=== PATIENT | female | born 1950 | race Caucasian/White ===

== ENCOUNTER 2016-10-30 05:39 | Outpatient (CLI) | payer MEDICARE, MEDICAID ==
[~2016-10-30] VITALS: Ht 160 cm; Wt 66.2 kg
[~2016-10-30 05:39] MED LIST: ARPZ20T PO; HCTZ12.5T PO; LVT.05T PO; METH10TA3; PANT20TA2 PO; SCR1T1 PO; SIMV10TA3; TRM50T PO; VENL100T PO; ZLP10T
[2016-10-30] MEDS ORDERED: MAGN250T PO (12:58)
[2016-10-30] MEDS ORDERED: CHOL10003 PO (12:58)
[2016-10-30] MEDS ORDERED: DESV50TA PO (12:58)
== END 2016-10-30 12:59 ==
LOC: PREOP 05:39
PROVIDERS: ATTEND Surgery Pediatric Surgery
DX: Z01.818 Encounter for other preprocedural examination (principal); Z12.11 Encounter for screening for malignant neoplasm of colon

== ENCOUNTER 2017-04-11 05:39 | Outpatient (CLI) | payer MEDICARE, MEDICAID ==
[~2017-04-11] VITALS: Ht 160 cm; Wt 75.3 kg
[~2017-04-11 05:39] MED LIST changes: +CHOL10003 PO; +DESV50TA PO; +MAGN250T2 PO
[2017-04-11] MEDS ORDERED: LEVO50TA6 PO (09:36)
[2017-04-11] MEDS ORDERED: CEFD300C3 PO (09:36)
[2017-04-11] MEDS ORDERED: ARIP20TA9 PO (09:36)
[2017-04-11] MEDS ORDERED: CHOL20002 PO (09:36)
[2017-04-11] MEDS ORDERED: POTA20TA15 PO (09:36)
[2017-04-11] MEDS ORDERED: HYDR12.5 PO (09:36)
[2017-04-11] MEDS ORDERED: METO-370 PO (09:36)
== END 2017-04-11 09:43 ==
LOC: PREOP 05:39
PROVIDERS: ATTEND Surgery
DX: Z01.818 Encounter for other preprocedural examination (principal); Z12.11 Encounter for screening for malignant neoplasm of colon

== ENCOUNTER 2017-04-18 10:17 | Day surgery (SDC) | payer MEDICARE, MEDICAID ==
[~2017-04-18] VITALS: Ht 160 cm; Wt 75.3 kg
[~2017-04-18 10:17] MED LIST changes: +ARIP20TA9 PO; +CEFD300C3 PO; +CHOL20002 PO; +HYDR12.5 PO; +LEVO50TA6 PO; +METO-370 PO; +POTA20TA15 PO
--- OUTSIDE RECORDS SUMMARY | 2017-04-18 10:22 | XMS REPORT | Continuity of Care Document ---
Author Author [facility] Address Unknown Phone Unavailable Allergies Active Description Code Type Severity Reaction Onset Reported/Identified Relationship to Patient Clinical Status Yes ENVIROMENTAL ENVIROMENTAL Mild N/A 09/30/2008 Yes Neosporin AF Drug Allergy N/A N/A 09/29/2013 Yes Neosporin ([id number]) Drug Allergy N/A N/A 10/16/2013 Yes Carafate Drug Allergy N/A N/A 02/07/2014 Yes bacitracin [id number] Drug Allergy Unknown N/A 04/11/2017 Yes neomycin [id number] Drug Allergy Unknown N/A 04/11/2017 Yes polymyxin B [id number] Drug Allergy Unknown N/A 04/11/2017 Medications Problems Date Dx Coded Attending Type Code Diagnosis Diagnosed By 09/29/2013 ILIANA EMERSON APRN S 496 COPD 10/16/2013 ILIANA EMERSON APRN S 244.9 HYPOTHYROIDISM 10/16/2013 JORDAN EMERSON APRNA S 296.80 BIPOLAR DISORDER UNSPECIFIED 10/16/2013 ILIANA EMRESON APRN S 496 COPD 10/16/2013 ILIANA EMERSON APRN S 530.81 GERD 10/16/2013 ILIANA EMERSON APRN S 691.8 ECZEMA 10/16/2013 ILIANA EMERSON APRN S 796.2 ELEVATED BLOOD PRESSURE READING WITHOUT DIAGNOSIS OF HYPERTENSION 10/16/2013 ILIANA EMERSON APRN S V70.0 EXAM - ROUTINE H&P 10/16/2013 JORDAN EMERSON APRNA S 244.9 HYPOTHYROIDISM 10/16/2013 JORDAN EMERSON APRNA S 296.80 BIPOLAR DISORDER UNSPECIFIED 10/16/2013 JORDAN EMERSON APRNA S 496 COPD 10/16/2013 SARABJIT EMERSON APRNNDA S 530.81 GERD 10/16/2013 IDANIA SOCCER COMMENTATOR, ILIANA S 691.8 ECZEMA 10/16/2013 IDANIA SOCCER COMMENTATOR, ILIANA S 796.2 ELEVATED BLOOD PRESSURE READING WITHOUT DIAGNOSIS OF HYPERTENSION 10/16/2013 IDANIA SOCCER COMMENTATOR, ILIANA S V70.0 EXAM - ROUTINE H&P 10/16/2013 LOTUS SOCCER COMMENTATOR, FABBY A 244.9 HYPOTHYROIDISM 10/16/2013 LOTUS SOCCER COMMENTATOR, FABBY A 296.80 BIPOLAR DISORDER UNSPECIFIED 10/16/2013 LOTUS SOCCER COMMENTATOR, FABBY A 496 COPD 10/16/2013 LOTUS SOCCER COMMENTATOR, FABBY A 530.81 GERD 10/16/2013 LOTUS SOCCER COMMENTATOR, FABBY A 691.8 ECZEMA 10/16/2013 LOTUS SOCCER COMMENTATOR, FABBY A 796.2 ELEVATED BLOOD PRESSURE READING WITHOUT DIAGNOSIS OF HYPERTENSION 10/16/2013 LOTUS SOCCER COMMENTATOR, FABBY A V70.0 EXAM - ROUTINE H&P 10/16/2013 LOTUS SOCCER COMMENTATOR, FABBY A 244.9 HYPOTHYROIDISM 10/16/2013 LOTUS SOCCER COMMENTATOR, FABBY A 296.80 BIPOLAR DISORDER UNSPECIFIED 10/16/2013 LOTUS SOCCER COMMENTATOR, FABBY A 496 COPD 10/16/2013 LOTUS SOCCER COMMENTATOR, FABBY A 530.81 GERD 10/16/2013 LOTUS SOCCER COMMENTATOR, FABBY A 691.8 ECZEMA 10/16/2013 LOTUS SOCCER COMMENTATOR, FABBY A 796.2 ELEVATED BLOOD PRESSURE READING WITHOUT DIAGNOSIS OF HYPERTENSION 10/16/2013 LOTUS RIBEIRO, FABBY A V70.0 EXAM - ROUTINE H&P 10/16/2013 IDANIA DONGN, ILIANA S 244.9 HYPOTHYROIDISM 10/16/2013 IDANIA SOCCER COMMENTATOR, ILIANA S 296.80 BIPOLAR DISORDER UNSPECIFIED 10/16/2013 IDANIA RIBEIRO, ILIANA S 496 COPD 10/16/2013 IDANIA DONGN, ILIANA S 530.81 GERD 10/16/2013 IDANIA SOCCER COMMENTATOR, ILIANA S 691.8 ECZEMA 10/16/2013 IDANIA SOCCER COMMENTATOR, ILIANA S 796.2 ELEVATED BLOOD PRESSURE READING WITHOUT DIAGNOSIS OF HYPERTENSION 10/16/2013 SARABJIT EMERSON APRNNDA S V70.0 EXAM - ROUTINE H&P 10/16/2013 IDANIA SOCCER COMMENTATOR, ILIANA S 244.9 HYPOTHYROIDISM 10/16/2013 IDANIA SOCCER COMMENTATOR, ILIANA S 296.80 BIPOLAR DISORDER UNSPECIFIED 10/16/2013 IDANIA SOCCER COMMENTATOR, ILIANA S 496 COPD 10/16/2013 IDANIA SOCCER COMMENTATOR, ILIANA S 530.81 GERD 10/16/2013 IDANIA SOCCER COMMENTATOR, ILIANA S 691.8 ECZEMA 10/16/2013 IDANIA SOCCER COMMENTATOR, ILIANA S 796.2 ELEVATED BLOOD PRESSURE READING WITHOUT DIAGNOSIS OF HYPERTENSION 10/16/2013 IDANIA SOCCER COMMENTATOR, ILIANA S V70.0 EXAM - ROUTINE H&P 10/16/2013 IDANIA SOCCER COMMENTATOR, ILIANA S 244.9 HYPOTHYROIDISM 10/16/2013 IDANIA SOCCER COMMENTATOR, ILIANA S 296.80 BIPOLAR DISORDER UNSPECIFIED 10/16/2013 IDANIA SOCCER COMMENTATOR, ILIANA S 496 COPD 10/16/2013 IDANIA SOCCER COMMENTATOR, ILIANA S 530.81 GERD 10/16/2013 IDANIA SOCCER COMMENTATOR, ILIANA S 691.8 ECZEMA 10/16/2013 IDANIA SOCCER COMMENTATOR, ILIANA S 796.2 ELEVATED BLOOD PRESSURE READING WITHOUT DIAGNOSIS OF HYPERTENSION 10/16/2013 IDANIA SOCCER COMMENTATOR, ILIANA S V70.0 EXAM - ROUTINE H&P 10/16/2013 IDANIA SOCCER COMMENTATOR, ILIANA S 244.9 HYPOTHYROIDISM 10/16/2013 IDANIA SOCCER COMMENTATOR, ILIANA S 296.80 BIPOLAR DISORDER UNSPECIFIED 10/16/2013 IDANIA SOCCER COMMENTATOR, ILIANA S 496 COPD 10/16/2013 IDANIA SOCCER COMMENTATOR, ILIANA S 530.81 GERD 10/16/2013 IDANIA SOCCER COMMENTATOR, ILIANA S 691.8 ECZEMA 10/16/2013 IDANIA SOCCER COMMENTATOR, ILIANA S 796.2 ELEVATED BLOOD PRESSURE READING WITHOUT DIAGNOSIS OF HYPERTENSION 10/16/2013 IDANIA SOCCER COMMENTATOR, ILIANA S V70.0 EXAM - ROUTINE H&P 10/16/2013 IDANIA SOCCER COMMENTATOR, ILIANA S 244.9 HYPOTHYROIDISM 10/16/2013 IDANIA SOCCER COMMENTATOR, ILIANA S 296.80 BIPOLAR DISORDER UNSPECIFIED 10/16/2013 IDANIA SOCCER COMMENTATOR, ILIANA S 496 COPD 10/16/2013 IDANIA SOCCER COMMENTATOR, ILIANA S 530.81 GERD 10/16/2013 IDANIA SOCCER COMMENTATOR, ILIANA S 691.8 ECZEMA 10/16/2013 IDANIA SOCCER COMMENTATOR, ILIANA S 796.2 ELEVATED BLOOD PRESSURE READING WITHOUT DIAGNOSIS OF HYPERTENSION 10/16/2013 IDANIA RIBEIRO, ILIANA S V70.0 EXAM - ROUTINE H&P 10/27/2013 IDANIA SOCCER COMMENTATOR, ILIANA S 466.0 ACUTE BRONCHITIS 10/27/2013 LOTUS SOCCER COMMENTATOR, FABBY A 466.0 ACUTE BRONCHITIS 10/27/2013 LOTUS SOCCER COMMENTATOR, FABBY A 466.0 ACUTE BRONCHITIS 10/27/2013 IDANIA SOCCER COMMENTATOR, ILIANA S 466.0 ACUTE BRONCHITIS 10/27/2013 IDANIA SOCCER COMMENTATOR, ILIANA S 466.0 ACUTE BRONCHITIS 10/27/2013 IDANIA SOCCER COMMENTATOR, ILIANA S 466.0 ACUTE BRONCHITIS 10/27/2013 IDANIA SOCCER COMMENTATOR, ILIANA S 466.0 ACUTE BRONCHITIS 10/27/2013 IDANIA SOCCER COMMENTATOR, ILIANA S 466.0 ACUTE BRONCHITIS 12/16/2013 LOTUS SOCCER COMMENTATOR, FABBY A 401.1 HYPERTENSION, BENIGN ESSENTIAL 12/16/2013 LOTUS SOCCER COMMENTATOR, FABBY A 787.20 DYSPHAGIA UNSPECIFIED 12/16/2013 LOTUS SOCCER COMMENTATOR, FABBY A 401.1 HYPERTENSION, BENIGN ESSENTIAL 12/16/2013 LOTUS SOCCER COMMENTATOR, FABBY A 787.20 DYSPHAGIA UNSPECIFIED 12/16/2013 IDANIA SOCCER COMMENTATOR, ILIANA S 401.1 HYPERTENSION, BENIGN ESSENTIAL 12/16/2013 IDANIA SOCCER COMMENTATOR, ILIANA S 787.20 DYSPHAGIA UNSPECIFIED 12/16/2013 IDANIA SOCCER COMMENTATOR, ILIANA S 401.1 HYPERTENSION, BENIGN ESSENTIAL 12/16/2013 IDANIA SOCCER COMMENTATOR, ILIANA S 787.20 DYSPHAGIA UNSPECIFIED 12/16/2013 IDANIA SOCCER COMMENTATOR, ILIANA S 401.1 HYPERTENSION, BENIGN ESSENTIAL 12/16/2013 IDANIA SOCCER COMMENTATOR, ILIANA S 787.20 DYSPHAGIA UNSPECIFIED 12/16/2013 IDANIA SOCCER COMMENTATOR, ILIANA S 401.1 HYPERTENSION, BENIGN ESSENTIAL 12/16/2013 IDANIA RIBEIRO ILIANA S 787.20 DYSPHAGIA UNSPECIFIED 12/16/2013 IDANIA RIBEIRO ILIANA S 401.1 HYPERTENSION, BENIGN ESSENTIAL 12/16/2013 IDANIA RIBEIRO ILIANA S 787.20 DYSPHAGIA UNSPECIFIED 12/24/2013 LOTUS RIBEIRO FABBY A V65.3 COUNSELING - DIETARY 12/24/2013 LOTUS RIBEIRO FABBY A V65.42 COUNSELING - SMOKING CESSATION 12/24/2013 LOTUS RIBEIRO FABBY A V72.31 CONTINUOUS IMPROVEMENT ANALYST EXAM, ROUTINE 12/24/2013 LOTUS RIBEIRO FABBY A V76.10 BREAST CANCER SCREENING 12/24/2013 LOTUS RIBEIRO FABBY A V82.81 SPECIAL SCREENING FOR OSTEOPOROSIS 12/24/2013 LOTUS RIBEIRO FABBY A V65.3 COUNSELING - DIETARY 12/24/2013 LOTUS DONGFelix FABBY A V65.42 COUNSELING - SMOKING CESSATION 12/24/2013 LOTUS RIBEIRO FABBY A V72.31 CONTINUOUS IMPROVEMENT ANALYST EXAM, ROUTINE 12/24/2013 LOTUS RIBEIRO FABBY A V76.10 BREAST CANCER SCREENING 12/24/2013 LOTUS RIBEIRO FABBY A V82.81 SPECIAL SCREENING FOR OSTEOPOROSIS 12/24/2013 IDANIA SOCCER COMMENTATORSARABJIT [place] S V65.3 COUNSELING - DIETARY 12/24/2013 IDANIAMARIA GUADALUPE DONGSARABJIT [place] S V65.42 COUNSELING - SMOKING CESSATION 12/24/2013 SARABJIT EMERSON APRNNDA S V72.31 CONTINUOUS IMPROVEMENT ANALYST EXAM, ROUTINE 12/24/2013 IDANIA RIBEIRO ILIANA S V76.10 BREAST CANCER SCREENING 12/24/2013 IDANIA SOCCER COMMENTATOR, ILIANA S V82.81 SPECIAL SCREENING FOR OSTEOPOROSIS 12/24/2013 IDANIA RIBEIRO ILIANA S V65.3 COUNSELING - DIETARY 12/24/2013 IDANIA SOCCER COMMENTATOR, ILIANA S V65.42 COUNSELING - SMOKING CESSATION 12/24/2013 IDANIA RIBEIRO ILIANA S V72.31 CONTINUOUS IMPROVEMENT ANALYST EXAM, ROUTINE 12/24/2013 IDANIA RIBEIRO ILIANA S V76.10 BREAST CANCER SCREENING 12/24/2013 IDANIA SOCCER COMMENTATOR, ILIANA S V82.81 SPECIAL SCREENING FOR OSTEOPOROSIS 12/24/2013 IDANIA SOCCER COMMENTATOR, ILIANA S V65.3 COUNSELING - DIETARY 12/24/2013 IDANIA SOCCER COMMENTATOR, ILIANA S V65.42 COUNSELING - SMOKING CESSATION 12/24/2013 IDANIA SOCCER COMMENTATOR, ILIANA S V72.31 CONTINUOUS IMPROVEMENT ANALYST EXAM, ROUTINE 12/24/2013 IDANIA SOCCER COMMENTATOR, ILIANA S V76.10 BREAST CANCER SCREENING 12/24/2013 IDANIA SOCCER COMMENTATOR, ILIANA S V82.81 SPECIAL SCREENING FOR OSTEOPOROSIS 12/24/2013 IDANIA SOCCER COMMENTATOR, ILIANA S V65.3 COUNSELING - DIETARY 12/24/2013 IDANIA SOCCER COMMENTATOR, ILIANA S V65.42 COUNSELING - SMOKING CESSATION 12/24/2013 IDANIA SOCCER COMMENTATOR, ILIANA S V72.31 CONTINUOUS IMPROVEMENT ANALYST EXAM, ROUTINE 12/24/2013 IDANIA SOCCER COMMENTATOR, ILIANA S V76.10 BREAST CANCER SCREENING 12/24/2013 IDANIA SOCCER COMMENTATOR, ILIANA S V82.81 SPECIAL SCREENING FOR OSTEOPOROSIS 12/24/2013 IDANIA SOCCER COMMENTATOR, ILIANA S V65.3 COUNSELING - DIETARY 12/24/2013 IDANIA SOCCER COMMENTATOR, ILIANA S V65.42 COUNSELING - SMOKING CESSATION 12/24/2013 IDANIA SOCCER COMMENTATOR, ILIANA S V72.31 CONTINUOUS IMPROVEMENT ANALYST EXAM, ROUTINE 12/24/2013 IDANIA SOCCER COMMENTATOR, ILIANA S V76.10 BREAST CANCER SCREENING 12/24/2013 IDANIA SOCCER COMMENTATOR, ILIANA S V82.81 SPECIAL SCREENING FOR OSTEOPOROSIS 01/30/2014 FAINA BRITTON MD Ot 530.11 REFLUX ESOPHAGITIS 01/30/2014 FAINA BRITTON MD Ot 535.50 UNSP GASTRITIS GASTRODUODENITIS W/O ME 01/30/2014 FAINA BRITTON MD Ot 553.3 DIAPHRAGMATIC HERNIA 02/07/2014 IDANIA RIBEIRO, ILIANA S 535.40 OTHER SPECIFIED GASTRITIS (WITHOUT HEMORRHAGE) 02/07/2014 IDANIA RIBEIRO ILIANA S V15.82 NICOTINE ABUSE 02/07/2014 IDANIA SOCCER COMMENTATOR, ILIANA S 535.40 OTHER SPECIFIED GASTRITIS (WITHOUT HEMORRHAGE) 02/07/2014 IDANIA SOCCER COMMENTATOR, ILIANA S V15.82 NICOTINE ABUSE 02/07/2014 IDANIA SOCCER COMMENTATOR, ILIANA S 535.40 OTHER SPECIFIED GASTRITIS (WITHOUT HEMORRHAGE) 02/07/2014 IDANIA SOCCER COMMENTATOR, ILIANA S V15.82 NICOTINE ABUSE 02/07/2014 IDANIA SOCCER COMMENTATOR, ILIANA S 535.40 OTHER SPECIFIED GASTRITIS (WITHOUT HEMORRHAGE) 02/07/2014 IDANIA SOCCER COMMENTATOR, ILIANA S V15.82 NICOTINE ABUSE 02/07/2014 IDANIA SOCCER COMMENTATOR, ILIANA S 535.40 OTHER SPECIFIED GASTRITIS (WITHOUT HEMORRHAGE) 02/07/2014 IDANIA SOCCER COMMENTATOR, ILIANA S V15.82 NICOTINE ABUSE 05/27/2014 IDANIA SOCCER COMMENTATOR, ILIANA S 704.8 OTHER SPECIFIED DISEASES OF HAIR AND HAIR FOLLICLES 05/27/2014 IDANIA SOCCER COMMENTATOR, ILIANA S 704.8 OTHER SPECIFIED DISEASES OF HAIR AND HAIR FOLLICLES 05/27/2014 IDANIA SOCCER COMMENTATOR, ILIANA S 704.8 OTHER SPECIFIED DISEASES OF HAIR AND HAIR FOLLICLES 06/18/2014 IDANIA RIBEIRO, ILIANA S 780.57 SLEEP APNEA 06/18/2014 IDANIA SOCCER COMMENTATOR, ILIANA S 780.57 SLEEP APNEA 07/07/2014 IDANIA RIBEIRO, ILIANA S 788.1 DYSURIA 07/07/2014 IDANIA SOCCER COMMENTATOR, ILIANA S 788.1 DYSURIA 07/27/2014 IDANIA SOCCER COMMENTATOR, ILIANA S 616.10 VAGINITIS AND VULVOVAGINITIS UNSPECIFIED 07/27/2014 IDANIA RIBEIRO, ILIANA S 616.10 VAGINITIS AND VULVOVAGINITIS UNSPECIFIED 08/13/2014 IDANIA RIBEIRO, ILIANA S 327.23 SLEEP APNEA 08/13/2014 IDANIA SOCCER COMMENTATOR, ILIANA S 724.5 BACK PAIN, GENERAL 08/13/2014 IDANIA RIBEIRO ILIANA S 780.4 DIZZINESS AND VERTIGO 08/13/2014 IDANIA RIBEIRO, ILIANA S 786.05 SHORTNESS OF BREATH 03/02/2015 ILIANA EMERSON CONTRACT LAW SPECIALIST Ot V76.12 03/02/2015 FAINA BRITTON MD Ot V72.84 03/02/2015 FAINA BRITTON MD Ot V72.84 03/23/2015 TRACY ERICKSON, ISAIAH L Ot Z12.31 03/26/2015 TRACY ERICKSON, ISAIAH L Ot Z12.31 03/30/2015 ILIANA EMERSON CONTRACT LAW SPECIALIST Ot V76.12 03/30/2015 TOBI ERICKSON, HAMKI Ot V72.84 03/30/2015 TOBI ERICKSON, SYLVESTERAAKI Ot V72.84 03/30/2015 TRACY ERICKSON, ISAIAH L Ot Z12.31 04/01/2015 ILIANA EMERSON CONTRACT LAW SPECIALIST Ot V76.12 04/01/2015 TOBI ERICKSON, TAKAAKI Ot V72.84 04/01/2015 TOBI ERICKSON, SYLVESTERAAKI Ot V72.84 04/01/2015 TRACY ERICKSON, ISAIAH L Ot Z12.31 04/02/2015 TRACY ERICKSON, ISAIAH L Ot Z12.31 04/02/2015 TRACY ERICKSON, ISAIAH L Ot G47.36 SLEEP RELATED HYPOVENTILATION IN CONDITI 03/08/2016 ILIANA EMERSON CONTRACT LAW SPECIALIST Ot V76.12 OTH SCREEN MAMMO-MALIGN NEOPLASM OF DWIGHT 03/08/2016 TOBI ERICKSON, SYLVESTERAAKI Ot V72.84 EXAM PRE-OPERATIVE NOS 03/08/2016 HAM BRITTON MDKI Ot V72.84 EXAM PRE-OPERATIVE NOS 03/08/2016 TRACY ERICKSON, ISAIAH L Ot Z12.31 ENCNTR SCREEN MAMMOGRAM FOR MALIGNANT NE 03/08/2016 TRACY ERICKSON, ISAIAH L Ot Z12.31 ENCNTR SCREEN MAMMOGRAM FOR MALIGNANT NE 03/08/2016 TRACY ERICKSON, ISAIAH L Ot Z12.31 ENCNTR SCREEN MAMMOGRAM FOR MALIGNANT NE 03/17/2016 TRACY ERICKSON, ISAIAH L Ot Z12.31 ENCNTR SCREEN MAMMOGRAM FOR MALIGNANT NE 05/17/2016 TRACY ERICKSON, ISAIAH L Ot Z12.31 ENCNTR SCREEN MAMMOGRAM FOR MALIGNANT NE 11/01/2016 ILIANA EMERSON CONTRACT LAW SPECIALIST Ot V76.12 OTH SCREEN MAMMO-MALIGN NEOPLASM OF DWIGHT 11/01/2016 FAINA BRITTON MD Ot V72.84 EXAM PRE-OPERATIVE NOS 11/01/2016 FAINA BRITTON MD Ot V72.84 EXAM PRE-OPERATIVE NOS 11/01/2016 TRACY ERICKSON, ISAIAH Wilson Ot Z12.31 ENCNTR SCREEN MAMMOGRAM FOR MALIGNANT NE 11/01/2016 ISAIAH MOLINA MD Ot Z12.31 ENCNTR SCREEN MAMMOGRAM FOR MALIGNANT NE 11/05/2016 FAINA BRITTON MD Ot Z01.818 ENCOUNTER FOR OTHER PREPROCEDURAL EXAMIN 11/05/2016 FAINA BRITTON MD, Ot Z12.11 ENCOUNTER FOR SCREENING FOR MALIGNANT NE 04/13/2017 FAINA BRITTON MD Ot Z01.818 ENCOUNTER FOR OTHER PREPROCEDURAL EXAMIN 04/13/2017 FAINA BRITTON MD, Ot Z12.11 ENCOUNTER FOR SCREENING FOR MALIGNANT NE 04/17/2017 FAINA BRITTON MD, Ot Z01.818 ENCOUNTER FOR OTHER PREPROCEDURAL EXAMIN 04/17/2017 FAINA BRITTON MD, Ot Z12.11 ENCOUNTER FOR SCREENING FOR MALIGNANT NE Procedures Code Description [place] [address] ROUTINE VENIPUNCTURE 10/21/2013 86782 XRAY CHEST 2 VIEW 10/21/2013 43720 CMP 10/21/2013 57695 CBC 10/21/2013 1344846 GFR CALC (RESULT ONLY) 10/21/2013 11554 LIPID PANEL 10/21 43982 TSH 10/21/2013 79858 MAMMOGRAM, SCREENING 12/24/2013 59541 BONE MINERAL DENSITY, HEEL US (IN HOUSE) 12/24/2013 65105 UA W/ CULTURE IF INDICATED 07/27/2014 97876 ROUTINE VENIPUNCTURE 08/13/2014 [id number] GFR CALC (RESULT ONLY) 08/14/2014 98346 CMP 08/14/2014 30161 OXIMETRY 2014 Results Encounters ACCT No. Visit Date/Time Discharge Status Pt. Type Provider Facility Loc./Unit Complaint [id number] 08/13/2014 15:52:00 08/13/2014 23: 59:59 CLS Outpatient ILIANA EMERSON APRN [id number] 07/27/2014 14:22:00 07/27/2014 23: 59:59 CLS Outpatient ILIANA EMERSON APRN [id number] 05/27/2014 13:28:00 05/27/2014 23: 59:59 CLS Outpatient ILIANA EMERSON APRN [id number] 03/09/2014 11:56:00 03/09/2014 23: 59:59 CLS Outpatient ILIANA EMERSON APRN [id number] 02/07/2014 09:25:00 02/07/2014 23: 59:59 CLS Outpatient ILIANA EMERSON APRN [id number] 12/24/2013 13:39:00 12/24/2013 23: 59:59 CLS Outpatient FABBY GAUTAM APRN [id number] 12/24/2013 13:39:00 12/24/2013 23: 59:59 CLS Outpatient FABBY GAUTAM APRN [id number] 10/21/2013 10:00:00 10/21/2013 23: 59:59 CLS Outpatient ILIANA EMERSON APRN [id number] 10/16/2013 16:45:00 10/16/2013 23: 59:59 CLS Outpatient ILIANA EMERSON APRN [id number] 09/29/2013 11:03:00 09/29/2013 23: 59:59 CLS Outpatient ILIANA EMERSON APRN [id number] 04/11/2017 05:39:00 2016 09:43:00 DIS Outpatient FAINA BRITTON MD [facility] PREOP COLONOSCOPY [id number] 11/03/2016 12:30:00 2016 23:59:59 CLS Preadmit FAINA BRITTON MD [facility] ENDO SCREENING [id number] 11/01/2016 09:30:00 2016 09:30:00 CAN Preadmit FAINA BRITTON MD [facility] ENDO SCREENING [id number] 10/30/2016 05:39:00 2016 12:59:00 DIS Outpatient FAINA BRITTON MD [facility] PREOP SCREENING [id number] 03/08/2016 14:17:00 2015 23:59:59 CLS Outpatient ISAIAH MOLINA MD [facility] RAD SCREENING FOR BREAST CANCER [id number] 04/02/2015 14:27:00 2014 14:39:00 DIS Outpatient ISAIAH MOLINA MD [facility] SLEEP MOOD DISORDER [id number] 03/02/2015 12:10:00 2014 23:59:59 CLS Outpatient ISAIAH MOLINA MD [facility] RAD SCREENING [id number] 08/21/2014 21:00:00 2014 23:59:59 CLS Preadmit ILIANA EMERSON [facility] SLEEP MOOD DISORDER [id number] 01/30/2014 09:04:00 2013 13:00:00 DIS Outpatient FAINA BRITTON MD [facility] SDC DYSPHASIA [id number] 01/29/2014 07:32:00 2013 23:59:59 CLS Outpatient FAINA BIRTTON MD [facility] PREOP DYSPHASIA [id number] 01/14/2014 07:14:00 2013 23:59:59 CLS Outpatient FAINA BRITTON MD [facility] PREOP DYSPHAGIA [id number] 01/01/2014 14:00:00 2013 23:59:59 CLS Outpatient ILIANA EMERSON [facility] RAD SCREENING [id number] 03/02/2015 12:08:00 Document Registration
[2017-04-18] MEDS ORDERED: LIDOCAINE JELLY 2% (XYLOCAINE) 5 ML TUBE MM PRN (10:30)
[2017-04-18 10:36] VITALS: BP 104/73
[2017-04-18] MEDS ORDERED: LIDOCAINE JELLY 2% (XYLOCAINE) 5 ML TUBE ONE (10:43)
[2017-04-18] MEDS ORDERED: fentaNYL INJECTION 100 MCG/2 ML AMP ONE (10:44)
[2017-04-18] MEDS ORDERED: MIDAZOLAM 2 MG/2 ML (VERSED) VIAL ONE ×4 (10:44)
[2017-04-18] MEDS ORDERED: NS IV 500 ML 500 ML IV PRN (10:45)
--- NOTE | 2017-04-18 10:51 | Conscious Sedation/ASA ---
Conscious Sedation Pre-Proced Time Reviewed: 10:45 ASA Class: 2 Airway Mallampati Classification: (iliamna appropriate class) I. II. III, IV Lungs Heart ASA score ASA 1: a normal healthy patient ASA 2: a patient with a mild systemic disease (mid diabetes, controlled hypertension, obesity ASA 3: a patient with a severe systemic disease that limits activity (angina , COPD, prior Myocardial infarction) ASA 4: a patient with an incapacitating disease that is a constant threat to life (CHF, renal failure) ASA 5: a moribund patient not expected to survive 24 hrs. (ruptured aneurysm) ASA 6: a declared brain patient whose organs are being harvested. For emergent operations, add the letter E after the classification Grade 2 Sedation Plan: Analgesia, Amnesia, Plan communicated to team members, Discussed options with patient/fam, Discussed risks with patient/fam Note The patient is an appropriate candidate to undergo the planned procedure, sedation, and anesthesia. The patient immediately re-assessed prior to indication. FAINA BRITTON MD Apr 18, 2017 10:51 am
--- NOTE | 2017-04-18 10:53 | Progress Note-Pre Operative ---
Pre-Operative Progress Note H&P Reviewed The H&P was reviewed, patient examined and no changes noted. Date Seen by Provider: Apr 18, 2017 Time Seen by Provider: 10:45 Date H&P Reviewed: Apr 18, 2017 Time H&P Reviewed: 10:45 Pre-Operative Diagnosis: screening colonoscopy FAINA BRITTON MD Apr 18, 2017 10:53 am
[2017-04-18] MEDS ORDERED: morphine INJ 10 MG/ML 1ML (SYR OR VIAL) IV PRN (11:00)
[2017-04-18] MEDS ORDERED: ACETAMINOPHEN 325 MG TABLET/CAPLET (TYLENOL) PO PRN (11:00)
[2017-04-18] MEDS ORDERED: ONDANSETRON 4 MG/2 ML (SDV) Z0FRAN IV PRN (11:00)
[2017-04-18] MEDS: MIDAZOLAM 2 MG/2 ML (VERSED) VIAL IVP PRN ×4 (11:00→11:27)
[2017-04-18] MEDS ORDERED: HYDROcodone/APAP 5 MG/325 MG (LORTAB) TAB PO PRN (11:00)
[2017-04-18] MEDS: fentaNYL INJECTION 100 MCG/2 ML AMP IVP PRN ×2 (11:05→11:12)
--- NOTE | 2017-04-18 11:47 | Progress Note-Post Operative ---
Post-Operative Progess Note Surgeon (s)/[employer] Membership Sales Agent (s) Surgeon FAINA BRITTON MD [employer] Membership Sales Agent: none Pre-Operative Diagnosis screening colonoscopy Post-Operative Diagnosis chronic stage 2 ext and int hemorrhoids, moderate sigmoid diverticulosis, sessile polyp sigmoid(5mm), distal and prooximal descending(3mm), cecal(5mm). Procedure & Operative Findings Date of Procedure 04/18/17 Procedure Performed/Findings Colonoscopy with bx. Anesthesia Type CS Estimated Blood Loss Estimated blood loss (mL): minimal Specimens/Packing Specimens Removed sigmoid polyp, prox and distal descending, cecal polyp. FAINA BRITTON MD Apr 18, 2017 11:47 am
--- NOTE | 2017-04-18 11:49 | Discharge Inst-Surgical ---
D/C Lap Instructions-TOBI Follow up 3 years Activity as tolerated High Fiber Diet 25g or more per day Avoid Alcohol, Caffeine, Spicy Hornitos and Acid foods. Drink 64 fluid oz or more of fluids per day. Symptoms to Report: Fever over 101 degree F, Nausea/Vomiting If any problems/questions: Contact your physician or go to Emergency Room FAINA BRITTON MD Apr 18, 2017 11:49 am
[2017-04-18 12:00] VITALS: BP 119/66
[2017-04-18 12:30] VITALS: BP 126/69
[2017-04-18 13:35] VITALS: BP 126/69
--- NOTE | 2017-04-18 19:15 | OPERATIVE REPORT ---
DATE OF SERVICE: 04/18/2017 ATTENDING PRIMARY CARE PHYSICIAN: Dr. Felipa Ulrich. PREOPERATIVE DIAGNOSIS: Screening colonoscopy. POSTOPERATIVE DIAGNOSES: Chronic stage II external and internal hemorrhoids, moderate sigmoid diverticulosis, sessile polyp of the sigmoid colon approximately 5 mm in size. Proximal, distal descending colonic polyps 3 mm in size, sessile polyp of the cecum 5 mm in size. PROCEDURE: Colonoscopy with biopsy. SURGEON: Dr. Britton. ANESTHESIA: Conscious sedation. ESTIMATED BLOOD LOSS: Minimal. FINDINGS: Chronic stage II external and internal hemorrhoids, not actively edematous nor inflamed and no bleeding. Moderate sigmoid diverticulosis with no signs of diverticulitis. There were multiple smaller sessile polyps one of the sigmoid colon approximately 5 mm in size, one of the proximal and distal descending colon a smaller approximately 2 to 3 mm in size and a sessile polyp of the cecum approximately 5 mm in size. These were all biopsied and destroyed using forceps and electrocautery. DISPOSITION: The patient tolerated the procedure well. The patient is a 66-year-old female who we have seen before in the past for gastroesophageal reflux disease. She underwent an EGD in 2013 and found to have reflux esophagitis as well as small hiatal hernia 2 cm in size and mild gastritis. She is now in need of a screening colonoscopy. She reports that her last one was in 2005 and recalls colonic atony however, no other abnormalities. She does not report any red blood per rectum nor any dark tarry stools. She does have a history of constipation. She does not report any family history of colon cancer. DESCRIPTION OF PROCEDURE: The patient was brought to the endoscopy suite, laid in the left lateral decubitus position. After adequate IV pain and sedative medications and conscious sedation anesthesia, a digital rectal examination was performed. Chronic stage II external and internal hemorrhoids were identified which were not actually edematous nor inflamed and no bleeding. Normal sphincter tone was felt and there were no palpable masses. The endoscope was then intubated into the anus and rectum and gently insufflated. The endoscope was then advanced through the valves of Gerard of the rectum and no polyps or any neoplasms identified. The endoscope was then advanced through the sigmoid colon where a moderate sigmoid diverticulosis identified. There were no mucosal inflammatory changes to indicate any active diverticulitis. A sessile polyp of the sigmoid colon was also identified which was approximately 5 mm in size. This was biopsied and destroyed using forceps and electrocautery with visualization of good hemostasis. The endoscope was then advanced through the descending colon where two small sessile polyps were identified approximately 2 to 3 mm in size. These were also biopsied and destroyed using forceps and electrocautery with visualization of good hemostasis. The endoscope was then advanced to the transverse colon and descending colon to the cecum. At the cecum, another sessile polyp approximately 5 mm in size was identified. This was again biopsied and destroyed using forceps and electrocautery with visualization of good hemostasis. The endoscope was then slowly withdrawn while taking a second look and suctioning of residual air with no additional findings. The patient tolerated the procedure well. We will await the biopsy results; however recommend the necessary lifestyle and diet accommodation including high fiber diet with at least 30 grams of fiber per day as well as at least 64 fluid ounces of water daily to promote soft stools on a daily basis. Due to the multitude of polyps as well as the sessile nature we will recommend a followup colonoscopy in 3 years. Job ID: [id number] DocumentID: [id number] Dictated Date: 04/18/2017 11:55:29 Professional System Administrator Date: 04/18/2017 19:14:24 Dictated By: FAINA BRITTON MD
== END 2017-04-18 13:35 | disposition home or self-care (01) ==
LOC: ENDO 10:17
PROVIDERS: ATTEND Surgery
DX: Z12.11 Encounter for screening for malignant neoplasm of colon (principal); K63.5 Polyp of colon; D12.4 Benign neoplasm of descending colon; D12.0 Benign neoplasm of cecum; K64.1 Second degree hemorrhoids; K57.30 Diverticulosis of large intestine without perforation or abscess without bleeding; I10 Essential (primary) hypertension; K21.9 Gastro-esophageal reflux disease without esophagitis; F31.9 Bipolar disorder, unspecified; E03.9 Hypothyroidism, unspecified; N28.9 Disorder of kidney and ureter, unspecified; G47.33 Obstructive sleep apnea (adult) (pediatric); L40.9 Psoriasis, unspecified; F17.210 Nicotine dependence, cigarettes, uncomplicated; Z88.8 Allergy status to other drugs, medicaments and biological substances

== ENCOUNTER → 2017-04-26 | Outpatient (CLI) | payer MEDICARE, MEDICAID ==
--- NOTE | 2017-04-26 12:04 | Diagnostic Imaging Report ---
INDICATION: Cough, congestion, and soreness. COMPARISON: The exam compared to 08/20/2007. FINDINGS: Heart size and pulmonary vascularity are within normal limits. There is some mild flattening of the diaphragms and retrosternal airspace expansion raising the question of a component of air trapping. The central airways appeared more thickened and prominent than on prior, and there may be some very mild perihilar luminal bronchiectasis. A process such as bronchitis is suggested by the findings. No addie alveolar consolidation or focal lobar pneumonia. No free air beneath the diaphragms. IMPRESSION: Borderline air trapping with new thickening of the central airways and peribronchial cuffing raising the question of reactive airway disease. No addie alveolar consolidation, failure pattern, or acute pleural pathology. Dictated by: Dictated on workstation # [id number]
== END ==
LOC: RAD 09:04
PROVIDERS: ATTEND Family Medicine
DX: J44.9 Chronic obstructive pulmonary disease, unspecified (principal); R50.9 Fever, unspecified; R09.81 Nasal congestion
CPT/HCPCS: 71020

== ENCOUNTER → 2017-10-18 | Outpatient (CLI) | payer MEDICARE, MEDICAID ==
--- NOTE | 2017-10-18 15:59 | Diagnostic Imaging Report ---
EXAMINATION: Right ankle at 12:40 p.m. INDICATION: Ankle pain. FINDINGS: Three views were obtained. There are no prior studies available for comparison. There is deformity of the medial malleolus of the distal tibia. I suspect that this is a sequela of prior trauma as opposed to an acute injury. If previous studies are available, they would be helpful for comparison. There is no fracture or acute bony abnormality identified. The ankle mortise is not widened and the talar dome is smooth. The soft tissues are unremarkable, but incidental note is made of a calcaneal spur. IMPRESSION: 1. The deformity of the medial malleolus of the distal tibia is more likely due to prior trauma than to an acute abnormality. If previous studies are available, they would be helpful for comparison. 2. There is no acute bony abnormality identified. Dictated by: Dictated on workstation # [id number]
== END ==
LOC: RAD 12:08
PROVIDERS: ATTEND Family Medicine
DX: M21.861 Other specified acquired deformities of right lower leg (principal)
CPT/HCPCS: 73610

== ENCOUNTER → 2018-02-01 | Outpatient (CLI) | payer MEDICARE, MEDICAID ==
--- NOTE | 2018-02-01 09:47 | Diagnostic Imaging Report ---
INDICATION: Sacroiliac pain for four weeks. TIME OF EXAMINATION: 09:32 a.m. FINDINGS: Multiple views of the SI joints were obtained. No ankylosis is identified. No sclerosis or osseous erosive changes are seen. IMPRESSION: Unremarkable SI joints. Dictated by: Dictated on workstation # [id number]
== END ==
LOC: RAD 08:35
PROVIDERS: ATTEND Family Medicine
DX: M53.3 Sacrococcygeal disorders, not elsewhere classified (principal)
CPT/HCPCS: 72202

== ENCOUNTER 2018-04-04 11:07 | Outpatient (RCR) | payer MEDICARE, MEDICAID ==
[2018-04-21] MEDS ORDERED: HYDR50CA PO (02:15)
[2018-04-21] MEDS ORDERED: NITR-65 PO (02:41)
[2018-05-04] MEDS ORDERED: PERM60CR4 TP (09:43)
[2018-05-04] MEDS ORDERED: HYDR-700 PO (09:43)
== END 2018-05-16 13:32 | disposition home or self-care (01) ==
PROVIDERS: ATTEND Family Medicine
DX: M54.5 Low back pain (principal); M25.552 Pain in left hip

== ENCOUNTER 2018-04-21 00:35 | Emergency (ER) | payer MEDICARE, MEDICAID ==
[~2018-04-21] VITALS: Ht 160 cm; Wt 71.7 kg
[2018-04-21] MEDS ORDERED: diphenhydrAMINE 25 MG TAB (BENADRYL) PO ONE (01:30)
[2018-04-21] MEDS ORDERED: FAMOTIDINE 20MG/2ML IV (PEPCID) IVP ONE (01:30)
[2018-04-21] MEDS ORDERED: methylPREDNISolone 125 MG (Solu-MEDROL) VIAL IVP ONE (01:30)
[2018-04-21 02:04] LABS: BASOPHILS % (AUTO) 0 % (0-10); EOSINOPHILS # (AUTO) 0.2 10^3/uL (0.0-0.3); EOSINOPHILS % (AUTO) 2 % (0-10); HEMATOCRIT 44 % (35-52); HEMOGLOBIN 15.1 G/DL (11.5-16.0); LYMPHOCYTES # (AUTO) 1.8 X 10^3 (1.0-4.0); LYMPHOCYTES % (AUTO) 21 % (12-44); MEAN CORPUSCULAR HEMOGLOBIN 29 PG (25-34); MEAN CORPUSCULAR HGB CONC 34 G/DL (32-36); MEAN CORPUSCULAR VOLUME 83 FL (80-99); MONOCYTES # (AUTO) 0.8 X 10^3 (0.0-1.0); MONOCYTES % (AUTO) 9 % (0-12); NEUTROPHILS # (AUTO) 5.7 X 10^3 (1.8-7.8); NEUTROPHILS % (AUTO) 67 % (42-75); PLATELET COUNT 322 10^3/uL (130-400); RED BLOOD COUNT 5.28 10^6/uL (4.35-5.85); RED CELL DISTRIBUTION WIDTH 15.3 % (10.0-14.5); WHITE BLOOD COUNT 8.5 10^3/uL (4.3-11.0)
--- NOTE | 2018-04-21 02:08 | ED Integumentary General ---
General Chief Complaint: Allergic Reaction Stated Complaint: RASH ALL OVER,TOOK BLEACH BATH Source: patient (SOMEWHAT LIMITED HISTORIAN) History of Present Illness Date Seen by Provider: Apr 21, 2018 Time Seen by Provider: 01:15 Initial Comments PT ARRIVES VIA POV FROM HOME C/O ITCHING ALL OVER X 4 DAYS--STATES "FROM THE TIPS OF MY TOES ALL THE WAY UP TO MY HAIR AND EVERYTHING IN BETWEEN--MY EARS, MY EYES, MY FACE, MY ARMS AND ALL OVER FRONT AND BACK" STATES IT FEELS LIKE SOMETHING IS CRAWLING ON HER NO SWELLING ANYWHERE NO DIFFICULTY BREATHING OR SWALLOWING AND NO WHEEZING HAS NOT TAKEN ANYTHING FOR SYMPTOMS, ALTHOUGH SHE STATES SHE TOOK A "BLEACH BATH " YESTERDAY--DIDN'T HELP. SYMPTOMS NO DIFFERENT TODAY HAS NOT SOUGHT CARE UNTIL TODAY--STATES SHE JUST CAME DOWN TONIGHT BECAUSE HER BOYFRIEND IS ADMITTED UPSTAIRS DENIES HISTORY OF SIMILAR DENIES ANY NEW MEDICATIONS, PRODUCTS, FOODS, DRINKS OR EXPOSURES NO KNOWN CONTACTS WITH SAME. PT LIVES ALONE, NO PETS NO RECENT ILLNESS, FEVER, N/V, ETC. STATES SHE HAS NOT TAKEN ANY OF HER MEDICATIONS FOR 1 1/2 WEEKS, GIVES NO REASON PCP: DR. MOLINA--THINKS SHE SAW HER 2 WEEKS AGO, BUT DOES NOT KNOW WHY. DENIES ANY NEW RX'S Allergies and Home Medications Allergies Coded Allergies: bacitracin (Unverified Allergy, Unknown, 04/11/17) neomycin (Unverified Allergy, Unknown, 04/11/17) polymyxin B (Unverified Allergy, Unknown, 04/11/17) Uncoded Allergies: ENVIROMENTAL (Allergy, Mild, 09/30/08) Home Medications Aripiprazole 20 Mg Tablet, 20 MG PO DAILY, (Reported) Cefdinir 300 Mg Capsule, 300 MG PO BID, (Reported) Cholecalciferol (Vitamin D3) 2,000 Unit Capsule, 2,000 UNIT PO DAILY, (Reported) Desvenlafaxine Succinate 50 Mg Tab.er.24h, 50 MG PO DAILY, (Reported) Hydrochlorothiazide 12.5 Mg Capsule, 12.5 MG PO DAILY, (Reported) Hydroxyzine Pamoate 50 Mg Capsule, 50 MG PO Q6H Prescribed by: ASAD HAYNES on 04/21/18 0215 Levothyroxine Sodium 50 Mcg Tablet, 50 MCG PO DAILY, (Reported) Magnesium 250 Mg Tablet, 250 MG PO DAILY, (Reported) Metoprolol Succinate 50 Mg Tab.er.24h, 50 MG PO DAILY, (Reported) Nitrofurantoin Monohyd/M-Cryst 100 Mg Capsule, 100 MG PO BID Prescribed by: ASAD HAYNES on 04/21/18 0241 Potassium Chloride 20 Meq Tab.er.prt, 20 MEQ PO DAILY, (Reported) Patient Home Medication List Home Medication List Reviewed: Yes Review of Systems Review of Systems Constitutional: no symptoms reported EENTM: see HPI Respiratory: no symptoms reported; No cough, No dyspnea on exertion, No short of breath, No wheezing Cardiovascular: no symptoms reported Gastrointestinal: no symptoms reported Genitourinary: no symptoms reported Musculoskeletal: no symptoms reported Skin: see HPI, pruritus; No rash; other (HAS A FEW SCABBED SORES ON FOREARMS AT SITES OF ITCHING) Psychiatric/Neurological: No Symptoms Reported Endocrine: No Symptoms Reported Hematologic/Lymphatic: No Symptoms Reported Past Cyswlhn-Rwfymz-Icnbtw Hx Patient Social History Alcohol Use: Denies Use Recreational Drug Use: No Smoking Status: Current Everyday Smoker (OVER 4 PPD FOR > 50 YEARS) Type Used: Cigarettes Recent Foreign Travel: No Contact w/Someone Who Travel: No Recent Hopitalizations: No Physical Abuse: No Sexual Abuse: No Mistreated: No Immunizations Up To Date Date of Pneumonia Vaccine: Jan 30, 2009 Date of Influenza Vaccine: Apr 04, 2017 Seasonal Allergies Seasonal Allergies: Yes Past Medical History Surgeries: Yes (BLADDER SUSPENSION 2008; EGD; COLONOSCOPIES WITH POLYPECTOMIES ; PARTIAL HYST 1971 WITH COMPLETE HYST/BSO 1979) Bladder Surgery, Hysterectomy, Oophorectomy, Tonsillectomy Respiratory: Yes (O2 2.5L NOC AND PRN) Sleep Apnea, COPD Currently Using CPAP: Yes (CPAP) Cardiac: Yes Chronic Edema/Swelling, Hypertension Neurological: No (POOR MEMORY) Reproductive Disorders: No 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, 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 Sexually Transmitted Disease: No HIV/AIDS: No Genitourinary: Yes (RENAL INSUFFICIENCY) Renal Failure Gastrointestinal: Yes Gastroesophageal Reflux, Chronic Constipation, Polyps Musculoskeletal: Yes (OSTEOARTHRITIS) Arthritis, Back Injury Endocrine: Yes Hypothyroidsim HEENT: No (EDENTULOUS) Loss of Vision: Bilateral Hearing Impairment: Denies Cancer: No Psychosocial: Yes Anxiety, Bipolar, Depression Integumentary: Yes Psoriasis Blood Disorders: Yes (ANEMIA) Adverse Reaction/Blood Tranf: No (N/A) Physical Exam Vital Signs Vital Signs - First Documented 04/21/18 01:00 Temp 98.4 Pulse 75 Resp 18 B/P (MAP) 175/93 (120) Pulse Ox 96 Capillary Refill : General Appearance: WD/WN, no apparent distress HEENT: other (EDENTULOUS, CONSTANT MOUTH MOVEMENTS. 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 ) Progress/Results/Core Measures Results/Orders Lab Results Laboratory Tests Test 04/21/18 01:55 04/21/18 02:08 Range/Units White Blood Count 8.5 4.3-11.0 10^3/uL Red Blood Count 5.28 4.35-5.85 10^6/uL Hemoglobin 15.1 11.5-16.0 G/DL Hematocrit 44 35-52 % Mean Corpuscular Volume 83 80-99 FL Mean Corpuscular Hemoglobin 29 25-34 PG Mean Corpuscular Hemoglobin Concent 34 32-36 G/DL Red Cell Distribution Width 15.3 H 10.0-14.5 % Platelet Count 322 130-400 10^3/uL Mean Platelet Volume 9.0 7.4-10.4 FL Neutrophils (%) (Auto) 67 42-75 % Lymphocytes (%) (Auto) 21 12-44 % Monocytes (%) (Auto) 9 0-12 % Eosinophils (%) (Auto) 2 0-10 % Basophils (%) (Auto) 0 0-10 % Neutrophils # (Auto) 5.7 1.8-7.8 X 10^3 Lymphocytes # (Auto) 1.8 1.0-4.0 X 10^3 Monocytes # (Auto) 0.8 0.0-1.0 X 10^3 Eosinophils # (Auto) 0.2 0.0-0.3 10^3/uL Basophils # (Auto) 0.0 0.0-0.1 10^3/uL Sodium Level 139 135-145 MMOL/L Potassium Level 3.3 L 3.6-5.0 MMOL/L Chloride Level 105 98-107 MMOL/L Carbon Dioxide Level 22 21-32 MMOL/L Anion Gap 12 5-14 MMOL/L Blood Urea Nitrogen 9 7-18 MG/DL Creatinine 0.81 0.60-1.30 MG/DL Estimat Glomerular Filtration Rate > 60 BUN/Creatinine Ratio 11 Glucose Level 103 70-105 MG/DL Calcium Level 9.9 8.5-10.1 MG/DL Corrected Calcium 9.9 8.5-10.1 MG/DL Magnesium Level 2.2 1.8-2.4 MG/DL Total Bilirubin 0.3 0.1-1.0 MG/DL Aspartate Amino Transf (AST/SGOT) 14 5-34 U/L Alanine Aminotransferase (ALT/SGPT) 11 0-55 U/L Alkaline Phosphatase 91 40-136 U/L Total Protein 7.2 6.4-8.2 GM/DL Albumin 4.0 3.2-4.5 GM/DL Serum Alcohol < 10 <10 MG/DL Urine Color YELLOW Urine Clarity SLIGHTLY CLOUDY Urine pH 6.5 5-9 Urine Specific [place] 1.010 L 1.016-1.022 Urine Protein NEGATIVE NEGATIVE Urine Glucose (UA) NEGATIVE NEGATIVE Urine Ketones NEGATIVE NEGATIVE Urine Nitrite POSITIVE H NEGATIVE Urine Bilirubin NEGATIVE NEGATIVE Urine Urobilinogen NORMAL NORMAL MG/DL Urine Leukocyte Esterase 3+ H NEGATIVE Urine RBC (Auto) 1+ H NEGATIVE Urine RBC 2-5 H /HPF Urine WBC 10-25 H /HPF Urine Squamous Epithelial Cells 2-5 /HPF Urine Crystals NONE /LPF Urine Bacteria LARGE H /HPF Urine Casts NONE /LPF Urine Mucus NEGATIVE /LPF Urine Culture Indicated YES Urine Opiates Screen NEGATIVE NEGATIVE Urine Oxycodone Screen NEGATIVE NEGATIVE Urine Methadone Screen NEGATIVE NEGATIVE Urine Propoxyphene Screen NEGATIVE NEGATIVE Urine Barbiturates Screen NEGATIVE NEGATIVE Ur Tricyclic Antidepressants Screen NEGATIVE NEGATIVE Urine Phencyclidine Screen NEGATIVE NEGATIVE Urine Amphetamines Screen NEGATIVE NEGATIVE Urine Methamphetamines Screen NEGATIVE NEGATIVE Urine Benzodiazepines Screen NEGATIVE NEGATIVE Urine Cocaine Screen NEGATIVE NEGATIVE Urine Cannabinoids Screen NEGATIVE NEGATIVE My Orders Orders - IVY,ASAD K DO Saline Lock/Iv-Start (04/21/18 01:25) Alcohol (04/21/18 01:25) Cbc With Automated Diff (04/21/18 01:25) Comprehensive Metabolic Panel (04/21/18 01:25) Drug Screen Stat (Urine) (04/21/18 01:25) Magnesium (04/21/18 01:25) Ua Culture If Indicated (04/21/18 01:25) Diphenhydramine Tablet (Benadryl Tablet) (04/21/18 01:30) Famotidine Injection (Pepcid Injection) (04/21/18 01:30) Methylprednisolone Sod Succ (Solu-Medrol (04/21/18 01:30) Urine Culture (04/21/18 02:08) Rx-Nitrofurantoin [place] (Rx-Macrobid) (04/21/18 02:39) Rx-Hydroxyzine Pamoate (Rx-Vistaril) (04/21/18 02:39) Potassium Chloride (Tablet) (Klor Con Ta (04/21/18 02:45) Medications Given in ED Current Medications Medications Dose Ordered Sig/Flaquito Route Start Time Stop Time Status Last Admin Dose Admin Diphenhydramine HCl 50 mg ONCE ONCE PO 04/21/18 01:30 04/21/18 01:31 DC 04/21/18 01:53 50 MG Famotidine 40 mg ONCE ONCE IVP 04/21/18 01:30 04/21/18 01:31 DC 04/21/18 01:53 40 MG Methylprednisolone Sodium Succinate 125 mg ONCE ONCE IVP 04/21/18 01:30 04/21/18 01:31 DC 04/21/18 01:53 125 MG Vital Signs/I&O 04/21/18 01:00 Temp 98.4 Pulse 75 Resp 18 B/P (MAP) 175/93 (120) Pulse Ox 96 Progress Progress Note : Progress Note ITCHING RESOLVED AT DISMISSAL Departure Impression Primary Impression: Pruritus Additional Impression: UTI (urinary tract infection) Disposition: HOME, SELF-CARE Condition: Stable Departure-Patient Inst. Referrals: ISAIAH MOLINA MD (PCP/Family) Primary Care Physician Patient Instructions: Itchy Skin, Urinary Tract Infection, Adult (DC) Add. Discharge Instructions: INCREASE THE HUMIDITY IN YOUR HOME TAKE YOUR REGULAR MEDICATIONS PRESCRIBED DO NOT TRY ANY NEW FOODS, DRINKS OR PRODUCTS FOLLOW UP WITH YOUR DR IN 2-3 DAYS IF NO BETTER,OTHERWISE FOLLOW UP IN 10 DAYS TO RECHECK URINE All discharge instructions reviewed with patient and/or family. Voiced understanding. Scripts Nitrofurantoin Monohyd/M-Cryst (Macrobid 100 mg Capsule) 100 Mg Capsule 100 MG PO BID, #20 CAP Prov: ASAD HAYNES DO 04/21/18 Hydroxyzine Pamoate (Vistaril) 50 Mg Capsule 50 MG PO Q6H for Itching, #20 CAP Prov: ASAD HAYNES DO 04/21/18 ASAD HAYNES DO Apr 21, 2018 02:08
[2018-04-21] MEDS ORDERED: HYDR50CA PO (02:15)
[2018-04-21 02:16] LABS: BILIRUBIN,URINE NEGATIVE (NEGATIVE); CLARITY,URINE SLIGHTLY CLOUDY; COLOR,URINE YELLOW; GLUCOSE, URINE (UA) NEGATIVE (NEGATIVE); KETONES,URINE NEGATIVE (NEGATIVE); LEUKOCYTE ESTERASE ,URINE 3+ (NEGATIVE); NITRITE,URINE POSITIVE (NEGATIVE); PH,URINE 6.5 (5-9); PROTEIN,URINE NEGATIVE (NEGATIVE); UROBILINOGEN,URINE NORMAL (NORMAL)
[2018-04-21 02:23] LABS: ALANINE AMINOTRANSFERASE 11 U/L (0-55); ALKALINE PHOSPHATASE 91 U/L (40-136); BILIRUBIN,TOTAL 0.3 MG/DL (0.1-1.0); BUN/CREATININE RATIO 11; CALCIUM 9.9 MG/DL (8.5-10.1); CARBON DIOXIDE 22 MMOL/L (21-32); CHLORIDE 105 MMOL/L (98-107); CREATININE SERUM 0.81 MG/DL (0.60-1.30); GFR ESTIMATED > 60; GLUCOSE 103 MG/DL (70-105); MAGNESIUM 2.2 MG/DL (1.8-2.4); POTASSIUM 3.3 MMOL/L (3.6-5.0); SODIUM 139 MMOL/L (135-145); TOTAL PROTEIN 7.2 GM/DL (6.4-8.2)
[2018-04-21 02:27] LABS: BACTERIA,URINE LARGE /HPF
[2018-04-21 02:28] LABS: AMPHETAMINE SCREEN, URINE NEGATIVE (NEGATIVE); BARBITURATE SCREEN URINE NEGATIVE (NEGATIVE); BENZODIAZEPINES SCREEN URINE NEGATIVE (NEGATIVE); CANNABINOID SCREEN, URINE NEGATIVE (NEGATIVE); COCAINE SCREEN URINE NEGATIVE (NEGATIVE); METHADONE STAT NEGATIVE (NEGATIVE); METHAMPHETAMINE SCREEN URINE S NEGATIVE (NEGATIVE); OPIATE SCREEN URINE NEGATIVE (NEGATIVE); OXYCODONE STAT NEGATIVE (NEGATIVE); PROPOXYPHENE STAT NEGATIVE (NEGATIVE); TRICYCLIC ANTIDEPRESSANTS SCRE NEGATIVE (NEGATIVE)
[2018-04-21] MEDS ORDERED: RX-HYDROXYZINE PAMOATE 25 MG CAP #4 PO STA (02:39)
[2018-04-21] MEDS ORDERED: RX-NITROFURANTOIN 100 MG (MACROBID) CAP PPK#2 PO STA (02:39)
[2018-04-21] MEDS ORDERED: NITR-65 PO (02:41)
[2018-04-21] MEDS ORDERED: KCL 10 MEQ TAB (MICRO K) PO ONE (02:45)
[2018-04-21 03:38] VITALS: BP 175/93
== END 2018-04-21 03:38 | disposition home or self-care (01) ==
LOC: EDUNIT# 00:35 → ER 00:38
DX: L29.9 Pruritus, unspecified (principal); N39.0 Urinary tract infection, site not specified; G47.30 Sleep apnea, unspecified; J44.9 Chronic obstructive pulmonary disease, unspecified; I10 Essential (primary) hypertension; K21.9 Gastro-esophageal reflux disease without esophagitis; E03.9 Hypothyroidism, unspecified; F41.9 Anxiety disorder, unspecified; F31.9 Bipolar disorder, unspecified; D64.9 Anemia, unspecified; F17.210 Nicotine dependence, cigarettes, uncomplicated; Z88.2 Allergy status to sulfonamides; Z87.19 Personal history of other diseases of the digestive system; Z88.8 Allergy status to other drugs, medicaments and biological substances; Z88.1 Allergy status to other antibiotic agents; Z86.010 Personal history of colon polyps; Z90.710 Acquired absence of both cervix and uterus; Z90.89 Acquired absence of other organs
CPT/HCPCS: 36415; 80053; 80306; 80320; 81000; 83735; 85025; 87077; 87088; 87186; 99283

== ENCOUNTER 2018-05-04 09:25 | Emergency (ER) | payer MEDICARE, MEDICAID ==
[~2018-05-04] VITALS: Ht 160 cm; Wt 71.2 kg
[~2018-05-04 09:25] MED LIST changes: +HYDR50CA PO; +NITR-65 PO
[2018-05-04] MEDS ORDERED: PERM60CR4 TP (09:43)
[2018-05-04] MEDS ORDERED: HYDR-700 PO (09:43)
--- NOTE | 2018-05-04 09:43 | ED General ---
General Stated Complaint: HEAD LICE/BODY LICE Source of Information: Patient Exam Limitations: No Limitations History of Present Illness Date Seen by Provider: May 04, 2018 Time Seen by Provider: 09:30 Initial Comments This 67-year-old woman presents to the emergency room with complaints of itching. She wonders if she has lice. She has a few excoriated lesions on her arms. She states she was prescribed nitrofurantoin last week for itching which clinically does not seem to correlate. Allergies and Home Medications Allergies Coded Allergies: bacitracin (Unverified Allergy, Unknown, 04/11/17) neomycin (Unverified Allergy, Unknown, 04/11/17) polymyxin B (Unverified Allergy, Unknown, 04/11/17) Uncoded Allergies: ENVIROMENTAL (Allergy, Mild, 09/30/08) Home Medications Aripiprazole 20 Mg Tablet, 20 MG PO DAILY, (Reported) Cefdinir 300 Mg Capsule, 300 MG PO BID, (Reported) Cholecalciferol (Vitamin D3) 2,000 Unit Capsule, 2,000 UNIT PO DAILY, (Reported) Desvenlafaxine Succinate 50 Mg Tab.er.24h, 50 MG PO DAILY, (Reported) Hydrochlorothiazide 12.5 Mg Capsule, 12.5 MG PO DAILY, (Reported) Hydroxyzine HCl 25 Mg Tablet, 25 MG PO TID PRN for ITCHING Prescribed by: MARKUS STAFFORD on 05/04/18942 Hydroxyzine Pamoate 50 Mg Capsule, 50 MG PO Q6H Prescribed by: ASAD HAYNES on 04/21/18 021 Levothyroxine Sodium 50 Mcg Tablet, 50 MCG PO DAILY, (Reported) Magnesium 250 Mg Tablet, 250 MG PO DAILY, (Reported) Metoprolol Succinate 50 Mg Tab.er.24h, 50 MG PO DAILY, (Reported) Nitrofurantoin Monohyd/M-Cryst 100 Mg Capsule, 100 MG PO BID Prescribed by: ASAD HAYNES on 04/21/18 0241 Permethrin 60 Gm Cream..g., 60 GM TP ONCE Repeat in 1 week if needed. Prescribed by: MARKUS STAFFORD on 05/04/18942 Potassium Chloride 20 Meq Tab.er.prt, 20 MEQ PO DAILY, (Reported) Patient Home Medication List Home Medication List Reviewed: Yes Review of Systems Review of Systems Constitutional: no symptoms reported EENTM: no symptoms reported Respiratory: no symptoms reported Cardiovascular: no symptoms reported Gastrointestinal: no symptoms reported Genitourinary: no symptoms reported Musculoskeletal: no symptoms reported Skin: see HPI Psychiatric/Neurological: No Symptoms Reported Hematologic/Lymphatic: No Symptoms Reported Immunological/Allergic: no symptoms reported Past Moeljqk-Rycbzy-Flwkfi Hx Past Med/Social Hx: Reviewed Nursing Past Med/Soc Hx Patient Social History Type Used: Cigarettes Recent Foreign Travel: No Contact w/Someone Who Travel: No Recent Hopitalizations: No Immunizations Up To Date Date of Pneumonia Vaccine: Jan 30, 2009 Date of Influenza Vaccine: Apr 04, 2017 Seasonal Allergies Seasonal Allergies: Yes Past Medical History Surgeries: Yes Bladder Surgery, Hysterectomy, Oophorectomy, Tonsillectomy Respiratory: Yes (O2 2.5L NOC AND PRN) Sleep Apnea, COPD Currently Using CPAP: Yes (CPAP) Cardiac: Yes Chronic Edema/Swelling, Hypertension Neurological: No (POOR MEMORY) Reproductive Disorders: No 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, 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 Sexually Transmitted Disease: No HIV/AIDS: No Genitourinary: Yes (RENAL INSUFFICIENCY) Renal Failure Gastrointestinal: Yes Gastroesophageal Reflux, Chronic Constipation, Polyps Musculoskeletal: Yes (OSTEOARTHRITIS) Arthritis, Back Injury Endocrine: Yes Hypothyroidsim HEENT: No (EDENTULOUS) Loss of Vision: Bilateral Hearing Impairment: Denies Cancer: No Psychosocial: Yes Anxiety, Bipolar, Depression Integumentary: Yes Psoriasis Blood Disorders: Yes (ANEMIA) Adverse Reaction/Blood Tranf: No (N/A) Physical Exam Vital Signs Vital Signs - First Documented 05/04/18 09:30 Temp 98.0 Pulse 82 Resp 16 B/P (MAP) 160/78 (105) Pulse Ox 95 O2 Delivery Room Air Capillary Refill : Height, Weight, BMI Height: 5'3.00" Weight: 158lbs. 0.0oz. 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 Trunk is clear.) Progress/Results/Core Measures Suspected Sepsis SIRS Temperature: Pulse: Respiratory Rate: Blood Pressure / Mean: Results/Orders Vital Signs/I&O 05/04/18 05/04/18 09:30 09:51 Temp 98.0 98.0 Pulse 82 82 Resp 16 16 B/P (MAP) 160/78 (105) 160/78 (105) Pulse Ox 95 95 O2 Delivery Room Air Capillary Refill : Progress Note : Progress Note The areas on her arms could represent scabies. Permethrin cream was prescribed. No lice were found in her hair but patient was advised to use next if she is concerned. I suggested using moisturizer cream and hydroxyzine for itching. Departure Impression Primary Impression: Pruritic condition Disposition: 01 HOME, SELF-CARE Condition: Improved Departure-Patient Inst. Decision time for Depature: 09:39 Referrals: ISAIAH MOLINA MD (PCP/Family) Primary Care Physician Patient Instructions: Lice, Scabies Add. Discharge Instructions: The exact cause of your itching is uncertain. If you're concerned about lice, you may purchase Nix [id number] and use as directed per package instructions. You may also try permethrin cream as prescribed for possible scabies. After you complete this treatment, try using a moisturizing lotion or cream as needed. Dry skin may be causing your itching. You may also use hydroxyzine as prescribed for itching. Please follow-up with your doctor as soon as possible. You may return to the ER if symptoms are worsening. Scripts Hydroxyzine HCl (Hydroxyzine HCl) 25 Mg Tablet 25 MG PO TID PRN for ITCHING, #20 TAB Prov: MARKUS FRANCO MD 05/04/18 Permethrin (Permethrin) 60 Gm Cream..g. 60 GM TP ONCE, #1 TUBE 1 Refill Repeat in 1 week if needed. Prov: MARKUS FRANCO MD 05/04/18 Copy Copies To 1: ISAIAH MOLINA MD, JOSHUA T MD May 04, 2018 09:43
[2018-05-04 09:51] VITALS: BP 160/78
== END 2018-05-04 09:51 | disposition home or self-care (01) ==
LOC: EDUNIT# 09:25 → ER 09:26
DX: L29.9 Pruritus, unspecified (principal); J44.9 Chronic obstructive pulmonary disease, unspecified; G47.30 Sleep apnea, unspecified; I10 Essential (primary) hypertension; E03.9 Hypothyroidism, unspecified; F31.9 Bipolar disorder, unspecified; F41.9 Anxiety disorder, unspecified; D64.9 Anemia, unspecified; K21.9 Gastro-esophageal reflux disease without esophagitis; Z87.19 Personal history of other diseases of the digestive system; Z87.448 Personal history of other diseases of urinary system; Z86.010 Personal history of colon polyps; Z88.1 Allergy status to other antibiotic agents; Z88.0 Allergy status to penicillin; Z88.8 Allergy status to other drugs, medicaments and biological substances; Z90.710 Acquired absence of both cervix and uterus; Z90.89 Acquired absence of other organs
CPT/HCPCS: 99281

== ENCOUNTER → 2018-06-12 | Outpatient (CLI) | payer MEDICARE, MEDICAID ==
[~2018-06-12] MED LIST changes: +HYDR-700 PO; +PERM60CR4 TP
--- NOTE | 2018-06-12 19:02 | Diagnostic Imaging Report ---
INDICATION: Routine screening. COMPARISON: Comparison is made with prior mammograms from 03/08/2016 and 03/02/2015. TECHNIQUE: 2D and 3D bilateral screening mammography was performed with computer-aided detection (CAD) system. FINDINGS: Both breasts remain heterogeneously dense, limiting the sensitivity of mammography. A nodular density in the inferior right breast appears stable. Nodular densities in the retroareolar left breast appear to be stable as well. No new mass or malignant appearing microcalcifications are seen. The axillae are unremarkable. IMPRESSION: No mammographic features suspicious for malignancy are identified. ACR BI-RADS Category 2: Benign findings. Result letter will be mailed to the patient. Note: At least 10% of breast cancer is not imaged by mammography. Dictated by: Dictated on workstation # [id number]
== END ==
LOC: RAD 11:18
PROVIDERS: ATTEND Family Medicine
DX: Z12.31 Encounter for screening mammogram for malignant neoplasm of breast (principal)
CPT/HCPCS: 77067

== ENCOUNTER → 2019-06-10 | Outpatient (CLI) | payer MEDICARE, MEDICAID ==
[~2019-06-10] MED LIST changes: -METO-370 PO; +METO50TA7 PO
--- NOTE | 2019-06-10 10:37 | Diagnostic Imaging Report ---
PROCEDURE: CT head without contrast. TECHNIQUE: Multiple contiguous axial images were obtained through the brain without the use of intravenous contrast. Auto Exposure Controls were utilized during the CT exam to meet ALARA standards for radiation dose reduction. INDICATION: Memory loss and dizziness. No prior studies are available for comparison. The ventricles and sulci are within normal limits. No sulcal effacement or midline shift is identified. No acute intra-axial or extra-axial hemorrhage is detected. Cisterns are patent. Visualized paranasal sinuses are clear. IMPRESSION: No acute intracranial process is detected. Dictated by: Dictated on workstation # [id number]
== END ==
LOC: RAD 09:50
PROVIDERS: ATTEND Internal Medicine
DX: F03.90 Unspecified dementia, unspecified severity, without behavioral disturbance, psychotic disturbance, mood disturbance, and anxiety (principal)
CPT/HCPCS: 70450

== ENCOUNTER 2020-02-02 13:54 | Emergency (ER) | payer MEDICARE, MEDICAID ==
[~2020-02-02] VITALS: Ht 162 cm; Wt 79.6 kg
[2020-02-02] MEDS ORDERED: RT-ALBUTEROL/IPRATROPIUM 3 ML (DUONEB) VIAL INH ONE (14:15)
--- NOTE | 2020-02-02 14:25 | NUR ---
ABG DRAWN BY DR CLARKE.
[2020-02-02 14:26] LABS: BASOPHILS % (AUTO) 0 % (0-10); EOSINOPHILS # (AUTO) 0.3 10^3/uL (0.0-0.3); EOSINOPHILS % (AUTO) 3 % (0-10); HEMATOCRIT 41 % (35-52); HEMOGLOBIN 13.8 G/DL (11.5-16.0); LYMPHOCYTES # (AUTO) 1.7 X 10^3 (1.0-4.0); LYMPHOCYTES % (AUTO) 21 % (12-44); MEAN CORPUSCULAR HEMOGLOBIN 28 PG (25-34); MEAN CORPUSCULAR HGB CONC 33 G/DL (32-36); MEAN CORPUSCULAR VOLUME 85 FL (80-99); MEAN PLATELET VOLUME 8.8 FL (7.4-10.4); MONOCYTES # (AUTO) 0.8 X 10^3 (0.0-1.0); MONOCYTES % (AUTO) 10 % (0-12); NEUTROPHILS # (AUTO) 5.3 X 10^3 (1.8-7.8); NEUTROPHILS % (AUTO) 65 % (42-75); PLATELET COUNT 300 10^3/uL (130-400); WHITE BLOOD COUNT 8.2 10^3/uL (4.3-11.0)
--- NOTE | 2020-02-02 14:29 | ED Respiratory ---
General Chief Complaint: Respiratory Problems Stated Complaint: SOB/ FATIGUE Source: patient Exam Limitations: no limitations History of Present Illness Date Seen by Provider: Feb 02, 2020 Time Seen by Provider: 14:00 Initial Comments Patient presents to ER by private conveyance from [facility] from Dr. Ne Medina clinic with chief complaint of over a month of worsening shortness of air. She has also complained of some increased weight gain 10 pounds since her last visit with Ne Medina and 30 pounds in the last 8 months. She has a history of COPD. She also complains of increased the abdominal distention and swelling in bilateral lower legs. Dr. Medina noted crackles in the bases. She is oxygen dependent at night to sleep 2-3 L/m by nasal cannula. She does not usually wear oxygen at day. Noted to have a 93% saturation on room air in the clinic. No laboratory x-ray initiated yet. No chest pain fever chills cough or sick contacts. The patient's on 20 mg Lasix daily. Allergies and Home Medications Allergies Coded Allergies: bacitracin (Unverified Allergy, Unknown, 04/11/17) neomycin (Unverified Allergy, Unknown, 04/11/17) polymyxin B (Unverified Allergy, Unknown, 04/11/17) Uncoded Allergies: ENVIROMENTAL (Allergy, Mild, 09/30/08) Home Medications Aripiprazole 20 Mg Tablet, 20 MG PO DAILY, (Reported) Cefdinir 300 Mg Capsule, 300 MG PO BID, (Reported) Cholecalciferol (Vitamin D3) 2,000 Unit Capsule, 2,000 UNIT PO DAILY, (Reported) Desvenlafaxine Succinate 50 Mg Tab.er.24h, 50 MG PO DAILY, (Reported) Hydrochlorothiazide 12.5 Mg Capsule, 12.5 MG PO DAILY, (Reported) Hydroxyzine HCl 25 Mg Tablet, 25 MG PO TID PRN for ITCHING Prescribed by: MARKUS STAFFORD on 05/04/18 0943 Hydroxyzine Pamoate 50 Mg Capsule, 50 MG PO Q6H Prescribed by: ASAD HAYNES on 04/21/18 0215 Levothyroxine Sodium 50 Mcg Tablet, 50 MCG PO DAILY, (Reported) Magnesium 250 Mg Tablet, 250 MG PO DAILY, (Reported) Metoprolol Succinate 50 Mg Tab.er.24h, 50 MG PO DAILY, (Reported) Nitrofurantoin Monohyd/M-Cryst 100 Mg Capsule, 100 MG PO BID Prescribed by: ASAD HAYNES on 04/21/18 0241 Permethrin 60 Gm Cream..g., 60 GM TP ONCE Repeat in 1 week if needed. Prescribed by: MARKUS STAFFORD on 05/04/18 0943 Potassium Chloride 20 Meq Tab.er.prt, 20 MEQ PO DAILY, (Reported) Patient Home Medication List Home Medication List Reviewed: Yes Review of Systems Review of Systems Constitutional: No chills, No diaphoresis EENTM: No ear discharge, No ear pain Respiratory: No cough; short of breath, wheezing Cardiovascular: No chest pain, No palpitations Gastrointestinal: No abdominal pain, No constipation, No diarrhea Genitourinary: No discharge, No dysuria; frequency Musculoskeletal: No back pain, No joint pain All Other Systems Reviewed Negative Unless Noted: Yes Past Aglghvj-Iwyzte-Mttkxm Hx Patient Social History Alcohol Use: Denies Use Recreational Drug Use: No Smoking Status: Former Smoker Type Used: Cigarettes Recent Foreign Travel: No Contact w/Someone Who Travel: No Recent Hopitalizations: No Immunizations Up To Date Date of Pneumonia Vaccine: Jan 30, 2009 Date of Influenza Vaccine: Apr 04, 2017 Seasonal Allergies Seasonal Allergies: Yes Past Medical History Surgeries: Yes Bladder Surgery, Hysterectomy, Oophorectomy, Tonsillectomy Respiratory: Yes (O2 2.5L NOC AND PRN) Sleep Apnea, COPD Currently Using CPAP: Yes (CPAP) Cardiac: Yes Chronic Edema/Swelling, Hypertension Neurological: No (POOR MEMORY) Reproductive Disorders: No 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, 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 Sexually Transmitted Disease: No HIV/AIDS: No Genitourinary: Yes (RENAL INSUFFICIENCY) Renal Failure Gastrointestinal: Yes Gastroesophageal Reflux, Chronic Constipation, Polyps Musculoskeletal: Yes (OSTEOARTHRITIS) Arthritis, Back Injury Endocrine: Yes Hypothyroidsim HEENT: No (EDENTULOUS) Loss of Vision: Bilateral Hearing Impairment: Denies Cancer: No Psychosocial: Yes Anxiety, Bipolar, Depression Integumentary: Yes Psoriasis Blood Disorders: Yes (ANEMIA) Adverse Reaction/Blood Tranf: No (N/A) Physical Exam Vital Signs - First Documented 02/02/20 14:00 Temp 36.6 Pulse 93 B/P (MAP) 152/73 (99) Pulse Ox 93 O2 Delivery Room Air O2 Flow Rate 2.00 Capillary Refill : Height: 5'3.00" Weight: 157lbs. 0.0oz. 71.093834hv; 29.4 BMI Method:Stated General Appearance: WD/WN, mild distress Eyes: Bilateral Eye Normal Inspection, Bilateral Eye PERRL, Bilateral Eye EOMI HEENT: PERRL/EOMI, normal ENT inspection, pharynx normal Neck: non-tender, full range of motion, supple, normal inspection Respiratory: respiratory distress (bilateral bases [id number]-[id number]-ewczgkth with tachypnea, respiratory rate of 25-30. 93% on room air), decreased breath sounds, accessory muscle use (mild), wheezing Cardiovascular: normal peripheral pulses, regular rate, rhythm Gastrointestinal: normal bowel sounds, non tender, soft Neurologic/Psychiatric: alert, normal mood/affect, oriented x 3 Skin: normal color, warm/dry Progress/Results/Core Measures Suspected Sepsis SIRS Temperature: Pulse: Respiratory Rate: Laboratory Tests 02/02/20 14:10: White Blood Count 8.2 Blood Pressure / Mean: Laboratory Tests 02/02/20 14:10: Creatinine 0.96, Platelet Count 300, Total Bilirubin 0.2 Results/Orders Lab Results Laboratory Tests Test 02/02/20 14:10 02/02/20 14:11 02/02/20 14:25 02/02/20 15:17 Range/Units White Blood Count 8.2 4.3-11.0 10^3/uL Red Blood Count 4.89 4.35-5.85 10^6/uL Hemoglobin 13.8 11.5-16.0 G/DL Hematocrit 41 35-52 % Mean Corpuscular Volume 85 80-99 FL Mean Corpuscular Hemoglobin 28 25-34 PG Mean Corpuscular Hemoglobin Concent 33 32-36 G/DL Red Cell Distribution Width 15.1 H 10.0-14.5 % Platelet Count 300 130-400 10^3/uL Mean Platelet Volume 8.8 7.4-10.4 FL Neutrophils (%) (Auto) 65 42-75 % Lymphocytes (%) (Auto) 21 12-44 % Monocytes (%) (Auto) 10 0-12 % Eosinophils (%) (Auto) 3 0-10 % Basophils (%) (Auto) 0 0-10 % Neutrophils # (Auto) 5.3 1.8-7.8 X 10^3 Lymphocytes # (Auto) 1.7 1.0-4.0 X 10^3 Monocytes # (Auto) 0.8 0.0-1.0 X 10^3 Eosinophils # (Auto) 0.3 0.0-0.3 10^3/uL Basophils # (Auto) 0.0 0.0-0.1 10^3/uL Sodium Level 136 135-145 MMOL/L Potassium Level 4.0 3.6-5.0 MMOL/L Chloride Level 104 98-107 MMOL/L Carbon Dioxide Level 22 21-32 MMOL/L Anion Gap 10 5-14 MMOL/L Blood Urea Nitrogen 27 H 7-18 MG/DL Creatinine 0.96 0.60-1.30 MG/DL Estimat Glomerular Filtration Rate 57 BUN/Creatinine Ratio 28 Glucose Level 101 70-105 MG/DL Calcium Level 9.4 8.5-10.1 MG/DL Corrected Calcium 9.6 8.5-10.1 MG/DL Total Bilirubin 0.2 0.1-1.0 MG/DL Aspartate Amino Transf (AST/SGOT) 21 5-34 U/L Alanine Aminotransferase (ALT/SGPT) 30 0-55 U/L Alkaline Phosphatase 92 40-136 U/L Troponin I < 0.028 <0.028 NG/ML C-Reactive Protein High Sensitivity 0.47 0.00-0.50 MG/DL B-Type Natriuretic Peptide 17.7 <100.0 PG/ML Total Protein 7.2 6.4-8.2 GM/DL Albumin 3.8 3.2-4.5 GM/DL Magnesium Level 1.9 1.6-2.4 MG/DL Blood Gas Puncture Site RT RAD Blood Gas Patient Temperature 97.9 Arterial Blood pH 7.39 7.37-7.43 Arterial Blood Partial Pressure CO2 38 35-45 MMHG Arterial Blood Partial Pressure O2 79 79-93 MMHG Arterial Blood HCO3 22 L 23-27 MMOL/L Arterial Blood Total CO2 23.6 21.0-31.0 MMOL/L Arterial Blood Oxygen Saturation 95 94-100 % Arterial Blood Base Excess -1.9 -2.5-2.5 MMOL/L Sacha Test YES-POS Blood Gas Ventilator Setting NO Blood Gas Inspired Oxygen 2 L Urine Color YELLOW Urine Clarity CLEAR Urine pH 6.0 5-9 Urine Specific [place] 1.015 L 1.016-1.022 Urine Protein NEGATIVE NEGATIVE Urine Glucose (UA) NEGATIVE NEGATIVE Urine Ketones NEGATIVE NEGATIVE Urine Nitrite POSITIVE H NEGATIVE Urine Bilirubin NEGATIVE NEGATIVE Urine Urobilinogen 0.2 < = 1.0 MG/DL Urine Leukocyte Esterase 1+ H NEGATIVE Urine RBC (Auto) NEGATIVE NEGATIVE Urine RBC NONE /HPF Urine WBC 25-50 H /HPF Urine Crystals NONE /LPF Urine Bacteria LARGE H /HPF Urine Casts NONE /LPF Urine Mucus NEGATIVE /LPF Urine Culture Indicated YES My Orders Orders - EDINSON CLARKE Albuterol/Ipra Inhalation Soln (Duoneb I (02/02/20 14:15) Chest 1 View, Ap/Pa Only (02/02/20 14:09) Svn Small Volume Nebulizer (02/02/20 14:09) Cbc With Automated Diff (02/02/20 14:09) Comprehensive Metabolic Panel (02/02/20 14:09) Hs C Reactive Protein (02/02/20 14:09) BNP (02/02/20 14:09) Troponin I (02/02/20 14:09) Ekg Tracing (02/02/20 14:09) Continuous Ekg Monitoring (02/02/20 14:09) Arterial Blood Gas (02/02/20 14:23) Magnesium (02/02/20 14:32) Ua Culture If Indicated (02/02/20 15:09) Urine Culture (02/02/20 15:17) Medications Given in ED Current Medications Medications Dose Ordered Sig/Flaquito Route Start Time Stop Time Status Last Admin Dose Admin Albuterol/ Ipratropium 3 ml ONCE ONCE INH 02/02/20 14:15 02/02/20 14:16 DC 02/02/20 14:33 3 ML Vital Signs/I&O 02/02/20 02/02/20 02/02/20 14:00 14:00 14:33 Temp 36.6 Pulse 93 B/P (MAP) 152/73 (99) Pulse Ox 93 96 O2 Delivery Room Air Nasal Cannula Nasal Cannula O2 Flow Rate 2.00 2.00 Capillary Refill : Progress Note #1: Time: 14:29 Progress Note DuoNeb, labs to include an ABG and a BNP. EKG and troponin. Suspect CHF exacerbation, COPD exacerbation, less likely pneumonia. We put her on 2 L and her oxygen sat ronda to 97%. Aseptic vital signs. Progress Note #2: Time: 15:50 Progress Note The patient not having any pneumonias, fluid collections or septic appearance however she does have a UTI consistent with her frequency of urine. Patient is resting comfortably with no tachypnea or complaint of dyspnea at this time while on 1 L by nasal cannula. Plan to give her some antibiotics and allow her to follow up outpatient with primary care. Return precautions were discussed. After her breathing treatment her respiratory complaints are gone. ECG Initial ECG Impression Date: Feb 02, 2020 Initial ECG Impression Time: 14:10 Initial ECG Rate: 71 Initial ECG Rhythm: Normal Sinus Initial ECG Intervals: Normal Initial ECG Impression: Normal Comment Normal sinus rhythm without clinically relevant ST elevation or depression. Diagnostic Imaging Diagonstic Imaging: Xray Plain Films/CT/US/NM/MRI: chest Comments NAME: MELITA COX MED REC#: [id number] PT STATUS: REG ER : 1950 PHYSICIAN: EDINSON CLARKE MD ADMIT DATE: 02/02/20/ER Signed Date of Exam:02/02/20 CHEST 1 VIEW, AP/PA ONLY INDICATION: Shortness of air. COMPARISON: April 26, 2017. TECHNIQUE: Single radiograph of the chest dated February 02, 2020. FINDINGS: The cardiac silhouette is borderline enlarged. No significant pulmonary vascular congestion. Calcified granulomata overlying the peripheral left upper lung are again identified. The left lung is otherwise clear. Mild right basilar opacities are present, though this is favored to relate to overlying soft tissues. No significant pleural effusion. No pneumothorax. No acute osseous abnormality. IMPRESSION: Mild cardiomegaly without overt congestive heart failure. Mild density overlying the right lung base, favored to simply relate to superimposition of overlying soft tissues. Dictated by: Dictated on workstation # [id number] Dict: 02/02/20 1454 Trans: 02/02/20 1515 [id number] Interpreted by: SHEILA LOVETT MD Electronically signed by: SHEILA LOVETT MD 02/02/20 1515 Reviewed: Reviewed by Me Departure Impression Primary Impression: UTI (urinary tract infection) Qualified Codes: N30.00 - Acute cystitis without hematuria Disposition: 01 HOME, SELF-CARE Condition: Stable Departure-Patient Inst. Decision time for Depature: 15:54 Referrals: ADRIAN RUGGIERO MD (PCP/Family) Primary Care Physician Patient Instructions: Chronic Obstructive Pulmonary Disease (COPD), Including Emphysema, Urinary Tract Infection, Adult (DC) Add. Discharge Instructions: Continue taking your medications as prescribed. If you feel short of breath then you need to take your breathing treatment. Start taking cephalexin one capsule twice a day for the next 7 days. For the next couple of days increase your fluid intake. Plan to follow up next week with your primary care provider for another examination. Return to the ER should you have recurrent shortness of breath that is not treated appropriately with breathing treatments. All discharge instructions reviewed with patient and/or family. Voiced understanding. Scripts Cephalexin (Cephalexin) 500 Mg Tablet 500 MG PO BID for 7 Days, #14 TAB 0 Refills Prov: EDINSON CLARKE 02/02/20 Copy Copies To 1: NE MEDINA MD, TITUS J Feb 02, 2020 14:29
[2020-02-02 14:32] LABS: ABG BASE EXCESS -1.9 MMOL/L (-2.5-2.5); ABG OXYGEN SATURATION 95 % (94-100); ABG PCO2 38 MMHG (35-45); ABG PH 7.39 (7.37-7.43); ABG PO2 79 MMHG (79-93); ABG TCO2 23.6 MMOL/L (21.0-31.0)
[2020-02-02 14:33] LABS: ALLENS TEST YES-POS; INSPIRED O2 2 L; PATIENT TEMP 97.9; VENTILATOR NO
[2020-02-02 14:38] LABS: ALBUMIN 3.8 GM/DL (3.2-4.5); CHLORIDE 104 MMOL/L (98-107); SODIUM 136 MMOL/L (135-145)
[2020-02-02 14:39] LABS: CALCIUM 9.4 MG/DL (8.5-10.1)
[2020-02-02 14:40] LABS: GLUCOSE 101 MG/DL (70-105); TOTAL PROTEIN 7.2 GM/DL (6.4-8.2)
[2020-02-02 14:41] LABS: CARBON DIOXIDE 22 MMOL/L (21-32)
[2020-02-02 14:42] LABS: BILIRUBIN,TOTAL 0.2 MG/DL (0.1-1.0)
[2020-02-02 14:44] LABS: ALKALINE PHOSPHATASE 92 U/L (40-136); CREATININE SERUM 0.96 MG/DL (0.60-1.30); GFR ESTIMATED 57
[2020-02-02 14:45] LABS: BUN/CREATININE RATIO 28
[2020-02-02 14:47] LABS: ALANINE AMINOTRANSFERASE 30 U/L (0-55)
--- NOTE | 2020-02-02 14:59 | Diagnostic Imaging Report ---
INDICATION: Shortness of air. COMPARISON: April 26, 2017. TECHNIQUE: Single radiograph of the chest dated February 02, 2020. FINDINGS: The cardiac silhouette is borderline enlarged. No significant pulmonary vascular congestion. Calcified granulomata overlying the peripheral left upper lung are again identified. The left lung is otherwise clear. Mild right basilar opacities are present, though this is favored to relate to overlying soft tissues. No significant pleural effusion. No pneumothorax. No acute osseous abnormality. IMPRESSION: Mild cardiomegaly without overt congestive heart failure. Mild density overlying the right lung base, favored to simply relate to superimposition of overlying soft tissues. Dictated by: Dictated on workstation # [id number]
--- NOTE | 2020-02-02 15:12 | NUR ---
AMB TO BATHROOM
[2020-02-02 15:25] LABS: BILIRUBIN,URINE NEGATIVE (NEGATIVE); CLARITY,URINE CLEAR; COLOR,URINE YELLOW; GLUCOSE, URINE (UA) NEGATIVE (NEGATIVE); KETONES,URINE NEGATIVE (NEGATIVE); LEUKOCYTE ESTERASE ,URINE 1+ (NEGATIVE); NITRITE,URINE POSITIVE (NEGATIVE); PROTEIN,URINE NEGATIVE (NEGATIVE)
[2020-02-02 15:40] LABS: BACTERIA,URINE LARGE /HPF; WBC,URINE 25-50 /HPF
[2020-02-02] MEDS ORDERED: CEPH500T PO (15:57)
[2020-02-02 16:25] VITALS: BP 154/79
== END 2020-02-02 16:28 | disposition home or self-care (01) ==
LOC: EDUNIT# 13:54 → ER 13:56
DX: N39.0 Urinary tract infection, site not specified (principal); F31.9 Bipolar disorder, unspecified; F41.9 Anxiety disorder, unspecified; I10 Essential (primary) hypertension; E03.9 Hypothyroidism, unspecified; N19 Unspecified kidney failure; Z79.890 Hormone replacement therapy; Z87.891 Personal history of nicotine dependence; Z88.1 Allergy status to other antibiotic agents; Z88.8 Allergy status to other drugs, medicaments and biological substances
CPT/HCPCS: 36415; 71045; 80053; 81000; 82805; 83735; 83880; 84484; 85025; 86141; 87077; 87088; 93005; 94640

== ENCOUNTER → 2020-02-16 | Outpatient (CLI) | payer MEDICARE, MEDICAID ==
[~2020-02-16] MED LIST changes: +CEPH500T PO
--- NOTE | 2020-02-16 13:33 | Diagnostic Imaging Report ---
PROCEDURE: CT chest without contrast. TECHNIQUE: Multiple contiguous axial images were obtained through the chest without the use of intravenous contrast. Auto Exposure Controls were utilized during the CT exam to meet ALARA standards for radiation dose reduction. INDICATION: Shortness of breath. There are no prior CT chest examinations available for comparison. The plain film examination of the chest performed on 02/02/2020 noted mild cardiomegaly and calcified granulomas on the periphery of the left upper lung. There is no acute cardiopulmonary abnormality identified. On this study the heart is enlarged and there are extensive coronary artery calcifications evident. There is also mild thickening of the pericardium. This measures approximately 6 mm. This finding is nonspecific, could be a sequela of prior episode of pericarditis. The aorta is not abnormally dilated. There is no obvious mediastinal or hilar adenopathy. There is 10.8 mm rounded area of low density in the left lobe of the thyroid. Ultrasound would be recommended to better characterize this finding. The thyroid gland is otherwise unremarkable. There are emphysematous changes involving both lungs. Calcified granulomas along the periphery of the left upper lung seen on plain film exam are again visualized and have a generally benign appearance. There is also a 3.3 mm benign-appearing nodular density along the posterior aspect of the right lung base. (Image 83 of 146). At this same level there is a pleural-based nodular density along the periphery of the right lower lobe measuring 5.4 mm. Just inferior to this there is a 4 mm noncalcified nodule in the periphery of the right lung. I suspect these findings are benign. Even so, a short-term (6 month) followup CT chest exam would be recommended for further study. There is no evidence for failure, pneumonia or for pleural effusion to indicate an acute abnormality. The sections through the upper abdomen failed to show any evidence for an acute abnormality. The bone windows show no evidence for an acute bony abnormality. There is a 1 cm nodular density in the inferior aspect of the right breast. This seems stable when compared to the prior mammogram of 06/12/2018. IMPRESSION: 1. There is cardiomegaly and coronary artery disease. There also appears to be thickening of the pericardium. This is nonspecific, could be a sequela of prior episode of pericarditis. 2. There are emphysematous changes involving both lungs but there is no acute cardiopulmonary abnormality noted. 3. The nodular densities in the right lung base are most likely benign. Recommendations as above. 4. Ultrasound would be recommended to better characterize the low density nodule in the left lobe of the thyroid. Dictated by: Dictated on workstation # [id number]
== END ==
LOC: RAD 12:07
PROVIDERS: ATTEND Pediatrics
DX: J43.9 Emphysema, unspecified (principal); R60.9 Edema, unspecified; I25.10 Atherosclerotic heart disease of native coronary artery without angina pectoris; I51.7 Cardiomegaly; J98.4 Other disorders of lung; J84.10 Pulmonary fibrosis, unspecified; R91.1 Solitary pulmonary nodule
CPT/HCPCS: 71250

== ENCOUNTER → 2020-05-04 | Outpatient (CLI) | payer MEDICARE, MEDICAID ==
[~2020-05-04] VITALS: Ht 160 cm; Wt 86.0 kg
[~2020-05-04] MED LIST changes: +CATHETER FLUSH 10 ML SYR IV PRN; +REGADENOSON 0.4 MG/5 ML SYR (LEXISCAN) IV ONE
[2020-05-04 09:32] VITALS: BP 163/126
--- NOTE | 2020-05-04 16:13 | STRESS TEST ---
DATE OF SERVICE: 05/04/2020 RESTING AND POST REGADENOSON TECHNETIUM-99M TETROFOSMIN SPECT CT IMAGING ORDERING PHYSICIAN: Madie Louis APRN PRIMARY PHYSICIAN: Dr. Rey. OTHER PHYSICIAN: Dr. Vazquez. CLINICAL DIAGNOSIS: Chest pain. Baseline images were carried out after injection of 10.59 mCi of technetium-99m Tetrofosmin. This was followed by 0.4 mg Regadenoson and 31.4 mCi of technetium-99m Tetrofosmin for stress imaging. The electrocardiogram showed sinus rhythm at baseline. It did not change significantly with Regadenoson infusion. Review of images at rest and following stress indicates a small to moderate anteroapical perfusion defect that appears transient. Gated images show normal global left ventricular systolic function with normal regional wall motion. Left ventricular ejection fraction is calculated to be 79%. Left ventricular end diastolic volume is 51 mL. CONCLUSIONS: 1. This study is indicative of a small to moderate amount of anteroapical ischemia. 2. Normal regional wall motion, normal global left ventricular systolic function with a calculated ejection fraction of 79%. Job ID: [id number] DocumentID: [id number] Dictated Date: 05/04/2020 12:14:11 Hydroelectric Mechanic Date: 05/04/2020 16:13:12 Dictated By: JENNIFER VAZQUEZ MD, MA, FACP, FACC,
== END ==
LOC: CARD 04-27 11:07
PROVIDERS: ATTEND Nurse Practitioner Family
DX: R07.89 Other chest pain (principal)
CPT/HCPCS: 78452; 93017; A9502

== ENCOUNTER 2020-05-18 08:00 | Day surgery (SDC) | payer MEDICARE, MEDICAID ==
[~2020-05-18] VITALS: Ht 160 cm; Wt 84.5 kg
[2020-05-18] VITALS (26 sets, daily range): BP systolic 112–193; BP diastolic 60–104
[2020-05-18 07:16] LABS: HEMOGLOBIN 14.7 g/dL (11.5-16.0); MEAN PLATELET VOLUME 8.9 fL (9.0-12.2); WHITE BLOOD COUNT 10.2 10^3/uL (4.3-11.0)
[2020-05-18 07:30] LABS: PROTHROMBIN TIME PATIENT 13.7 SEC (12.2-14.7)
[2020-05-18 07:35] LABS: ALANINE AMINOTRANSFERASE 26 U/L (0-55); ALBUMIN 4.1 GM/DL (3.2-4.5); ALKALINE PHOSPHATASE 100 U/L (40-136); BILIRUBIN,TOTAL 0.3 MG/DL (0.1-1.0); BUN/CREATININE RATIO 26; CALCIUM 9.9 MG/DL (8.5-10.1); CARBON DIOXIDE 23 MMOL/L (21-32); CHLORIDE 106 MMOL/L (98-107); CHOLESTEROL 222 MG/DL (< 200); CREATININE SERUM 0.89 MG/DL (0.60-1.30); GFR ESTIMATED > 60; GLUCOSE 109 MG/DL (70-105); HDL CHOLESTEROL 69 MG/DL (40-60); POTASSIUM 4.2 MMOL/L (3.6-5.0); SODIUM 136 MMOL/L (135-145); TOTAL PROTEIN 7.9 GM/DL (6.4-8.2); TRIGLYCERIDES 133 MG/DL (<150); VLDL CHOLESTEROL 27 MG/DL (5-40)
[~2020-05-18 08:00] MED LIST changes: +ASPI-1238 PO; +BIOT5000 PO; +BREX2TAB PO; -CATHETER FLUSH 10 ML SYR IV PRN; +DONE10TA41 PO; +ESCI10TA55 PO; +FLUT1BLS3 IH; +FURO20TA4 PO; +HEParin (CATH LAB) 2,000 ML IV ONE; +LIDOCAINE 1% INJ 20 ML 20 ML VIAL ONE; +MTP25TSR PO; +NS IV 1000 ML 1,000 ML IV SCH; +NS IV 1000 ML 1,000 ML ONE; +POTA10CA43 PO; -REGADENOSON 0.4 MG/5 ML SYR (LEXISCAN) IV ONE
[2020-05-18] MEDS ORDERED: MIDAZOLAM 5 MG/5 ML (VERSED) VIAL ONE (08:19)
[2020-05-18] MEDS ORDERED: fentaNYL INJECTION 100 MCG/2 ML AMP ONE ×2 (08:19→14:16)
[2020-05-18] MEDS ORDERED: HEParin 1000 UNIT/ML (10ML VIAL) FOR BOLUS ONE (08:53)
[2020-05-18] MEDS ORDERED: ADENOSINE 90 MG/30 ML (ADENOSCAN) VIAL IV ONE (08:53)
[2020-05-18] MEDS ORDERED: EPTIFIBATIDE BOLUS 20 ML IV ONE (09:14)
[2020-05-18] MEDS ORDERED: NITRO DRIP 25000 MCG/D5W 250 ML IV ONE (09:18)
[2020-05-18] MEDS ORDERED: ASPIRIN 81 MG CHEW (CHILDREN'S ASA) ONE (09:48)
[2020-05-18] MEDS ORDERED: CLOPIDOGREL 300 MG (PLAVIX) TABLET PO ONE (09:48)
--- NOTE | 2020-05-18 09:50 | Cardiac Procedure Note-CS/ASA ---
Pre-Procedure Note Pre-Op Procedure Note H&P Reviewed The H&P was reviewed, patient examined and no changes noted. Date H&P Reviewed: May 18, 2020 Time H&P Reviewed: 08:45 Conscious Sedation Pre-Proced Time 08:45 ASA Score 3 For ASA 3 and 4: Consider anesthesia and medical clearance. Also, for patients with a history of failed moderate sedation consider anesthesia. Airway Lungs Heart ASA score ASA 1: a normal healthy patient ASA 2: a patient with a mild systemic disease (mid diabetes, controlled hypertension, obesity ASA 3: a patient with a severe systemic disease that limits activity (angina, COPD, prior Myocardial infarction) ASA 4: a patient with an incapacitating disease that is a constant threat to life (CHF, renal failure) ASA 5: a moribund patient not expected to survive 24 hrs. (ruptured aneurysm) ASA 6: a declared brain- patient whose organs are being harvested. For emergent operations, add the letter E after the classification Mallampati Classification Grade 2 Sedation Plan Analgesia, Amnesia, Plan communicated to team members, Discussed options with patient/fam, Discussed risks with patient/fam The patient is an appropriate candidate to undergo the planned procedure, sedation, and anesthesia. The patient immediately re-assessed prior to indication. JENNIFER ARMANDO MD FACP FAC CCDS May 18, 2020 09:50
[2020-05-18] MEDS ORDERED: PATIENT MAY USE OWN MEDS, ALL PO SCH (10:00)
[2020-05-18] MEDS ORDERED: ACETAMINOPHEN 325 MG TABLET PO PRN (10:00)
--- NOTE | 2020-05-18 10:12 | NUR ---
IV INFILTRATED AT LAST PART OF PROCEDURE. DC'D. TIP INTACT. NEW #20 IV TO LEFT AC USING ULTRASOUND BY CARMINE MCCARTNEY
[2020-05-18] MEDS: NS IV 1000 ML 1,000 ML IV SCH ×2 (10:30→21:47)
[2020-05-18] MEDS ORDERED: ACETAMINOPHEN 325 MG TABLET ONE (12:18)
--- NOTE | 2020-05-18 12:59 | CARDIAC CATHETERIZATION ---
DATE OF SERVICE: 05/18/2020 CARDIAC CATHETERIZATION AND CORONARY INTERVENTION REPORT INDICATION FOR PROCEDURE: The patient is a 69-year-old lady with multiple coronary artery disease risk factors, who has been experiencing chest discomfort and shortness of breath and these symptoms have been progressive. Myocardial perfusion imaging was indicative of apical ischemia. Cardiac catheterization was carried out after having obtained an informed consent. DESCRIPTION OF PROCEDURE: She was brought to the cardiac catheterization laboratory in a fasting state. Right groin was prepared and draped in the usual sterile fashion. Lidocaine 1% was used for local anesthesia. Modified Seldinger technique was used to advance a 5[place] sheath into the right femoral artery, 5[place] JR4 catheter was used for left coronary angiography, 5[place] JR4 catheter was used for right coronary angiography, 5[place] pigtail catheter was used for left heart catheterization and left ventricular angiography. FRACTIONAL FLOW RESERVE MEASUREMENT IN THE RIGHT CORONARY: The right coronary artery was exhibiting up to 60% to 70% proximal stenosis. There was some haziness with it. We decided to proceed with fractional flow reserve measurement. We exchanged the sheath over a wire for a 6-[place] sheath. We used a 6[place] JR4 guide catheter with side holes to engage the right coronary artery. We advanced the pressure wire across the lesion and the tip was placed in the distal vessel. We carried out fractional flow reserve measurement while infusing 140 mcg per kilogram per minute of adenosine over 2 minutes and 30 seconds. Fractional flow reserve was 0.81. Given all of the data (chest discomfort, ischemia and myocardial perfusion imaging, considerable right coronary artery stenosis and fractional flow reserve of approximately 0.8), we felt that coronary intervention would be appropriate for this lesion. PERCUTANEOUS INTERVENTION TO THE RIGHT CORONARY: We gave additional 1000 units of intravenous heparin. A double bolus Integrilin was given. The pressure wire was in place and we tried to advance a Xience Alem 2.5 x 12 mm stent to the lesion. We were unable to do so because the lesion was tight and there was significant calcification. The stent was removed. We advanced a ChoICE extra support wire across the lesion and the tip was placed in the distal vessel. We kept the pressure wire as a sydney wire. We first carried out balloon angioplasty of the proximal right coronary with a 2.0 x 30 mm balloon. We were then able to advance the Xience Alem 2.5 x 12 mm stent to the lesion and it was deployed at 14 atmospheres. Subsequent angiography revealed 0% residual stenosis. We were able to easily remove both wires. The guide catheter was removed as well. The patient tolerated the procedure well. The sheath was sutured in place and the patient was transferred to the floor for manual sheath removal. HEMODYNAMICS: Left ventricular end-diastolic pressure following coronary angiography was 18 mmHg. There is no significant pressure gradient on pullback across the aortic valve. Ascending aortic pressure was 129/60 with a mean of 81 mmHg. CORONARY ANGIOGRAPHY: There is diffuse coronary calcification. Left main coronary artery does not exhibit significant obstructive disease. Left anterior descending artery has significant calcification and moderate diffuse disease. The left circumflex artery and the ramus intermedius artery have mild to moderate diffuse disease. The right coronary artery is dominant. It has significant calcification in its proximal and mid portions. There was up to 70% to 80% proximal stenosis to which successful stenting was carried out as described above. Following deployment of Xience Alem 2.5 x 12 mm stent, there was no significant residual stenosis and flow throughout the vessel was normal. LEFT VENTRICULAR ANGIOGRAPHY: Left ventricular angiography was carried out in the right anterior oblique projection. Global left ventricular systolic function appeared normal. Left ventricular ejection fraction was 55% to 60%. CONCLUSIONS: 1. Coronary artery disease primarily consisting of 70% to 80% proximal stenosis to the right coronary, to which successful stenting was carried out with a Xience Alem 2.5 x 12 mm stent with a reduction of stenosis to 0% residual. The rest of the coronary vessels have diffuse moderate disease. 2. Normal global left ventricular systolic function with ejection fraction of 55% to 60%. 3. Mild elevation of the left ventricular end-diastolic pressure. DISCUSSION AND RECOMMENDATIONS: Dual antiplatelet therapy has been initiated. Beta bindu therapy and statin therapy are recommended. She remains hospitalized for overnight observation. Risk factor modification has been reviewed. We have asked her to avoid tobacco use. Job ID: [id number] DocumentID: [id number] Dictated Date: 05/18/2020 10:10:16 Cloth Dyeing Range Tender Date: 05/18/2020 12:58:27 Dictated By: JENNIFER ARMANDO MD, MA, FACP, FACC,
[2020-05-18] MEDS ORDERED: morphine INJ 4 MG/ML 1 ML (VIAL/SYRINGE) ONE (13:48)
[2020-05-18] MEDS ORDERED: morphine INJ 10 MG/ML 1ML (SYR OR VIAL) IVP PRN (14:00)
[2020-05-18] MEDS ORDERED: ATROPINE INJ 0.4 MG/ML SDV ONE (14:16)
[2020-05-18] MEDS: morphine INJ 10 MG/ML 1ML (SYR OR VIAL) IVP NR ×2 (15:17→15:46)
[2020-05-18] MEDS ORDERED: morphine INJ 4 MG/ML 1 ML (VIAL/SYRINGE) IVP PRN (15:30)
--- NOTE | 2020-05-18 19:57 | NUR ---
Assisted to [facility] without difficulty. Did not have any output. Patient complaining of nausea. Saltines and Sprite provided.
[2020-05-19] VITALS (15 sets, daily range): BP systolic 91–157; BP diastolic 51–90
[2020-05-19 04:12] LABS: CHLORIDE 104 MMOL/L (98-107); POTASSIUM 4.1 MMOL/L (3.6-5.0); SODIUM 134 MMOL/L (135-145)
[2020-05-19 04:14] LABS: GLUCOSE 103 MG/DL (70-105)
[2020-05-19 04:15] LABS: CARBON DIOXIDE 22 MMOL/L (21-32)
[2020-05-19 04:18] LABS: CREATININE SERUM 0.79 MG/DL (0.60-1.30); GFR ESTIMATED > 60
[2020-05-19 04:19] LABS: BUN/CREATININE RATIO 22
--- NOTE | 2020-05-19 05:20 | NUR ---
Pt to floor at this time transferred from ICU via bed by 2 ICU staff. Pt is stable, call light in reach, voices no complaints at this time.
--- NOTE | 2020-05-19 05:53 | Pulmonary Consultation ---
History of Present Illness History of Present Illness Date Seen by Provider: May 19, 2020 Time Seen by Provider: 05:48 Date of Admission Allergies and Home Medications Allergies Coded Allergies: bacitracin (Unverified Allergy, Unknown, 04/11/17) neomycin (Unverified Allergy, Unknown, 04/11/17) polymyxin B (Unverified Allergy, Unknown, 04/11/17) Uncoded Allergies: ENVIROMENTAL (Allergy, Mild, 09/30/08) Home Medications Aspirin 81 Mg Tablet.dr, 81 MG PO DAILY, (Reported) Biotin 5,000 Mcg Tab.rapdis, 5,000 MCG PO DAILY, (Reported) Brexpiprazole 2 Mg Tablet, 2 MG PO DAILY, (Reported) Donepezil HCl 10 Mg Tablet, 10 MG PO HS, (Reported) Escitalopram Oxalate 10 Mg Tablet, 10 MG PO DAILY, (Reported) Fluticasone/Umeclidin/Vilanter 1 Each Blst.w.dev, 1 EACH IH DAILY, (Reported) Furosemide 20 Mg Tablet, 20 MG PO DAILY, (Reported) Levothyroxine Sodium 50 Mcg Tablet, 50 MCG PO DAILY, (Reported) Metoprolol Succinate 25 Mg Tab.er.24h, 25 MG PO DAILY, (Reported) Potassium Chloride 10 Meq Capsule.er, 10 MEQ PO DAILY, (Reported) Past Xnotqij-Vrkiwx-Pdeasw Hx Patient Social History Alcohol Use: Denies Use Recreational Drug Use: No Smoking Status: Former Smoker Type Used: Cigarettes Recent Foreign Travel: No Contact w/Someone Who Travel: No Recent Infectious Disease Expo: No Recent Hopitalizations: No Immunizations Up To Date Date of Pneumonia Vaccine: May 18, 2017 Date of Influenza Vaccine: Apr 14, 2020 Seasonal Allergies Seasonal Allergies: Yes Past Medical History Surgeries: Yes Bladder Surgery, Hysterectomy, Oophorectomy, Tonsillectomy Respiratory: Yes (O2 2.5L NOC AND PRN) Sleep Apnea, COPD Currently Using CPAP: Yes (CPAP DOESN'T WEAR, USES O2 VIA CANNULA) Cardiac: Yes Chronic Edema/Swelling, Hypertension Neurological: No (POOR MEMORY) Reproductive Disorders: No 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, Menopausal Sexually Transmitted Disease: No HIV/AIDS: No Genitourinary: Yes (RENAL INSUFFICIENCY) Renal Failure Gastrointestinal: Yes Gastroesophageal Reflux, Chronic Constipation, Polyps Musculoskeletal: Yes (OSTEOARTHRITIS) Arthritis, Back Injury Endocrine: Yes Hypothyroidsim HEENT: No (EDENTULOUS) Loss of Vision: Bilateral Hearing Impairment: Denies Cancer: No Psychosocial: Yes Anxiety, Bipolar, Depression Integumentary: Yes Psoriasis Blood Disorders: Yes (ANEMIA) Adverse Reaction/Blood Tranf: No (N/A) Review of Systems Time Seen by Provider: 05:48 Sepsis Event Evaluation Height, Weight, BMI Height: 5'3.00" Weight: 157lbs. 0.0oz. 71.047442wm; 35.54 BMI Method:Stated Exam Exam Vital Signs Date Time Temp Pulse Resp B/P (MAP) Pulse Ox O2 Delivery O2 Flow Rate FiO2 05/19/20 04:43 Room Air 05/19/20 04:00 65 12 127/72 (90) 94 Room Air 05/19/20 03:00 59 18 120/51 (74) 95 Room Air 05/19/20 02:00 60 17 91/57 (66) 95 Room Air 05/19/20 01:00 57 12 116/53 (82) 95 Room Air 05/19/20 01:00 57 05/19/20 00:30 Room Air 05/19/20 00:00 57 14 135/78 (108) 93 Room Air 05/18/20 23:00 61 16 118/60 (79) 95 Room Air 05/18/20 22:00 64 16 126/73 (90) 95 Room Air 05/18/20 21:37 Nasal Cannula 2.00 05/18/20 21:00 60 10 131/69 (89) 95 Room Air 05/18/20 20:38 Room Air 05/18/20 20:00 70 13 138/90 (106) 88 Room Air 05/18/20 19:11 35.5 05/18/20 19:00 62 05/18/20 19:00 62 15 130/77 (94) 94 Room Air 05/18/20 16:39 35.5 05/18/20 16:00 66 15 125/68 (87) 90 Room Air 05/18/20 16:00 Room Air 05/18/20 14:55 64 18 112/61 (83) 91 Room Air 05/18/20 14:50 70 12 124/67 (87) 91 Room Air 05/18/20 14:45 69 17 126/65 (91) 91 Room Air 05/18/20 14:40 73 20 131/69 (85) 92 Room Air 05/18/20 14:30 147/78 (95) 05/18/20 14:15 66 12 133/71 (99) 91 Room Air 05/18/20 14:00 78 13 148/75 (105) 94 Room Air 05/18/20 13:45 65 17 176/91 (125) 93 Room Air 05/18/20 13:30 65 18 185/90 (124) 92 Room Air 05/18/20 13:15 68 15 169/82 (119) 93 Room Air 05/18/20 13:00 62 18 167/89 (103) 96 Room Air 05/18/20 12:45 67 16 156/91 (99) 95 Room Air 05/18/20 12:43 67 05/18/20 12:30 68 16 149/85 (110) 95 Room Air 05/18/20 12:15 69 17 162/90 (105) 92 Room Air 05/18/20 12:00 Room Air 05/18/20 12:00 36.0 05/18/20 11:00 70 18 175/99 (124) 93 Room Air 05/18/20 10:56 36.2 60 18 193/104 92 Room Air 05/18/20 10:45 63 16 161/103 (122) 94 Room Air 05/18/20 10:43 36.2 60 18 193/104 (133) 92 Room Air 05/18/20 10:30 36.2 60 18 193/104 (133) 92 Room Air 05/18/20 07:10 36.7 75 16 155/82 (106) 98 Room Air I & O 05/19/20 07:00 Intake Total 1540 ml Balance 1540 ml Height & Weight Height: 5'3.00" Weight: 157lbs. 0.0oz. 71.449264pw; 35.54 BMI Method:Stated Capillary Refill: Less Than 3 Seconds Results Lab Laboratory Tests 05/18/20 07:05 05/19/20 03:25 Assessment/Plan Assessment/Plan CAD s/p cath with stent placement after abnormal stress test -Cardiology following -No current CP Hx of oxygen dependent COPD -Pt uses 2 liters at home. -Pt takes Trilogy at home -will start Advair while in the hospital -Albuterol -She is currently on 2 liters NC -No fevers, No PC Hx of tobacco use -Quit in the 's Hypothyroid -Synthroid restarted. SERA CERNA DO May 19, 2020 05:53
[2020-05-19] MEDS: NS IV 1000 ML 1,000 ML IV SCH (06:30)
[2020-05-19] MEDS ORDERED: LEVOTHYROXINE 50 MCG (LEVOTHROID) TAB PO SCH (06:30)
[2020-05-19] MEDS ORDERED: KCL 10 MEQ TAB (MICRO K) PO SCH (07:00)
--- NOTE | 2020-05-19 07:54 | Progress Note - Cardiology ---
Cardiology SOAP Progress Note Subjective: Sitting up in bed C/O mild groin site discomfort C/O occ "sticking" sensation in her upper chest No c/o dyspnea States she feels better than yesterday Objective: I&O/Vital Signs 05/18/20 05/19/20 05/19/20 05/19/20 23:00 00:00 00:30 01:00 Pulse 61 57 57 Resp 16 14 B/P (MAP) 118/60 (79) 135/78 (108) Pulse Ox 95 93 O2 Delivery Room Air Room Air Vapotherm 05/19/20 05/19/20 05/19/20 05/19/20 01:00 02:00 03:00 04:00 Pulse 57 60 59 65 Resp 12 17 18 12 B/P (MAP) 116/53 (82) 91/57 (66) 120/51 (74) 127/72 (90) Pulse Ox 95 95 95 94 O2 Delivery Room Air Room Air Room Air Room Air 05/19/20 05/19/20 05/19/20 05/19/20 04:43 05:00 06:00 06:37 Pulse 67 59 70 Resp 14 15 B/P (MAP) 133/70 (91) 138/64 (88) Pulse Ox 97 94 96 O2 Delivery Vapotherm Room Air Room Air O2 Flow Rate 20.00 FiO2 35 05/19/20 05/19/20 05/19/20 07:37 08:00 09:00 Temp 35.8 O2 Delivery Nasal Cannula Nasal Cannula O2 Flow Rate 2.00 2.00 05/19/20 00:00 Intake Total 1300 ml Balance 1300 ml Weight (Pounds): 157 Weight (Ounces): 0.0 Weight (Calculated Kilograms): 71.959898 Constitutional: AAO x 3, well-developed, well-nourished Respiratory: No accessory muscle use, No respiratory distress; chest expansion is symmetric, chest is bilaterally symmetric, other (good air entry bilat) Cardiovascular: regular rate-rhythm; No JVD; S1 and S2 Gastrointestional: No tender; soft, round, audible bowel sounds Neurologic/Psychiatric: grossly intact (moves all extremities) Skin: No rash on exposed areas, No ulcerations on exposed areas Results/Procedures: Labs Laboratory Tests 05/18/20 13:23: Activated Partial Thromboplast Time 37H 05/19/20 03:25: White Blood Count 9.0, Red Blood Count 4.69, Hemoglobin 13.0, Hematocrit 40, Mean Corpuscular Volume 85, Mean Corpuscular Hemoglobin 28, Mean Corpuscular H emoglobin Concent 33, Red Cell Distribution Width 14.5, Platelet Count 261, Mean Platelet Volume 9.0, Sodium Level 134L, Potassium Level 4.1, Chloride Level 104, Carbon Dioxide Level 22, Anion Gap 8, Blood Urea Nitrogen 17, Creatinine 0.79, Estimat Glomerular Filtration Rate > 60, BUN/Creatinine Ratio 22, Glucose Level 103, Calcium Level 9.0 Microbiology 05/18/20 MRSA Screen - Final, Complete MRSA not isolated Laboratory Tests 05/18/20 07:05 05/19/20 03:25 A/P: Assessment: Coronary artery disease primarily consisting of 70% to 80% proximal stenosis to the right coronary, to which successful stenting was carried out with a Xience Alem 2.5 x 12 mm stent with a reduction of stenosis to 0% residual. The rest of the coronary vessels have diffuse moderate disease. Normal global left ventri cular systolic function with ejection fraction of 55% to 60%. Mild elevation of the left ventricular end-diastolic pressure. Per cardiac cath of 05-18-2020 Exertional shortness of breath - improved Bilat leg claudication Quit Jan 2020. Prior to that 5 packs per day since her late teens Echo of 02/23/20: LVEF 55-60%, mild mitral and tricuspid regurg, PASP 50 mmHg COPD Pt reports poor memory. PCP records indicate dementia TSH 2.93 on 06/09/19 Weight gain of undetermined etiology - following with her PCP Plan: S/P cardiac cath with successful intervention Continue current medication regimen including DAPT, statin and BB Advise f/u appt in 1-2 weeks Discussed importance of compliance with all medications including Plavix. She verbalizes understanding and states she will comply SHARON KISER May 19, 2020 07:54
[2020-05-19] MEDS ORDERED: ATOR40TA PO (07:55)
[2020-05-19] MEDS ORDERED: CLOP75TA28 PO (07:55)
--- NOTE | 2020-05-19 07:56 | Discharge Inst-Cardiology ---
Discharge Inst-Cardiac Discharge Medications New Medications: Atorvastatin Calcium (Lipitor) 40 Mg Tablet 40 MG PO HS, #90 TAB 3 Refills Clopidogrel Bisulfate (Clopidogrel) 75 Mg Tablet 75 MG PO DAILY, #90 TAB 3 Refills Continued Medications: Aspirin (Aspirin EC) 81 Mg Tablet.dr 81 MG PO DAILY, TAB Biotin (Biotin) 5,000 Mcg Tab.rapdis 5000 MCG PO DAILY, TAB Brexpiprazole (Rexulti) 2 Mg Tablet 2 MG PO DAILY, TAB Donepezil HCl (Donepezil HCl) 10 Mg Tablet 10 MG PO HS, TAB Escitalopram Oxalate (Escitalopram Oxalate) 10 Mg Tablet 10 MG PO DAILY, TAB Fluticasone/Umeclidin/Vilanter (Trelegy Ellipta 100-62.5-25) 1 Each Blst.w.dev 1 EACH IH DAILY Furosemide (Furosemide) 20 Mg Tablet 20 MG PO DAILY, TAB Levothyroxine Sodium (Levothyroxine Sodium) 50 Mcg Tablet 50 MCG PO DAILY, TAB Metoprolol Succinate (Metoprolol Succinate) 25 Mg Tab.er.24h 25 MG PO DAILY, TAB Potassium Chloride (Potassium Chloride) 10 Meq Capsule.er 10 MEQ PO DAILY, CAP New, Converted or Re-Newed RX: Transmitted to Pharmacy Patient Instructions Patient Instructions: Please schedule follow up appointment with Dr. Vazquez in 1-2 weeks SHARON KISER May 19, 2020 07:56
[2020-05-19] MEDS ORDERED: ADVAIR HFA 115/21 MCG INHALER 8 GM IH SCH (08:00)
[2020-05-19] MEDS ORDERED: Fluticasone/Umeclidin/Vilanter (Trelegy Ellipta 100-62.5 IH SCH (08:00)
[2020-05-19] MEDS ORDERED: BIOTIN 5000 MCG PO SCH (09:00)
[2020-05-19] MEDS ORDERED: CLOPIDOGREL 75 MG (PLAVIX) TABLET PO SCH (09:00)
[2020-05-19] MEDS ORDERED: BREXPIPRAZOLE 2 MG PO SCH (09:00)
[2020-05-19] MEDS ORDERED: ASPIRIN E.C. 81 MG (ECOTRIN) TAB PO SCH (09:00)
[2020-05-19] MEDS ORDERED: FUROSEMIDE 20 MG (LASIX) TAB PO SCH (09:00)
--- NOTE | 2020-05-19 10:54 | NUR ---
Pt is listed as Quaker but states it has been a very long time since involved. offered blessing.
--- NOTE | 2020-05-19 17:15 | Progress Note - Cardiology ---
Cardiology SOAP Progress Note Subjective: No cp or palp or syncope or shortness of breath No focal weakness No groin or leg discomfort or discoloration Feels well and wishes to go home Objective: I&O/Vital Signs 05/19/20 05/19/20 05/19/20 05/19/20 06:00 06:37 07:00 07:37 Temp 35.8 Pulse 59 70 64 Resp 15 17 B/P (MAP) 138/64 (88) 122/79 (93) Pulse Ox 96 92 O2 Delivery Room Air Room Air 05/19/20 05/19/20 05/19/20 05/19/20 08:00 08:00 09:00 09:00 Pulse 67 82 Resp 17 25 B/P (MAP) 130/64 (86) 157/64 (95) Pulse Ox 95 93 O2 Delivery Room Air Nasal Cannula Room Air Nasal Cannula O2 Flow Rate 2.00 2.00 05/19/20 05/19/20 05/19/20 05/19/20 10:00 11:00 12:00 12:00 Pulse 75 65 63 Resp 20 22 20 B/P (MAP) 135/71 (92) 145/72 (96) 140/90 (107) Pulse Ox 95 95 95 O2 Delivery Room Air Room Air Room Air Nasal Cannula O2 Flow Rate 2.00 05/19/20 05/19/20 05/19/20 12:47 13:00 14:00 Pulse 79 64 65 Resp 15 18 B/P (MAP) 135/69 (91) 144/70 (94) Pulse Ox 96 95 O2 Delivery Room Air Room Air 05/19/20 00:00 Intake Total 1300 ml Balance 1300 ml Weight (Pounds): 157 Weight (Ounces): 0.0 Weight (Calculated Kilograms): 71.120688 Constitutional: AAO x 3, well-developed, well-nourished Respiratory: No accessory muscle use, No respiratory distress; chest expansion is symmetric, chest is bilaterally symmetric, other (good air entry bilat) Cardiovascular: regular rate-rhythm; No JVD; S1 and S2 Gastrointestional: No tender; soft, round, audible bowel sounds Neurologic/Psychiatric: grossly intact (moves all extremities) Skin: No rash on exposed areas, No ulcerations on exposed areas Results/Procedures: Labs Laboratory Tests 05/19/20 03:25: White Blood Count 9.0, Red Blood Count 4.69, Hemoglobin 13.0, Hematocrit 40, Mean Corpuscular Volume 85, Mean Corpuscular Hemoglobin 28, Mean Corpuscular Hemoglobin Concent 33, Red Cell Distribution Width 14.5, Platelet Count 261, Mean Platelet Volume 9.0, Sodium Level 134L, Potassium Level 4.1, Chloride Level 104, Carbon Dioxide Level 22, Anion Gap 8, Blood Urea Nitrogen 17, Creatinine 0.79, Estimat Glomerular Filtration Rate > 60, BUN/Creatinine Ratio 22, Glucose Level 103, Calcium Level 9.0 Microbiology 05/18/20 MRSA Screen - Final, Complete MRSA not isolated Laboratory Tests 05/18/20 07:05 05/19/20 03:25 A/P: Assessment: CAD. Card cath of 05-18-20: 70% to 80% proximal stenosis to the right coronary, to which successful stenting was carried out with a Xience Alem 2.5 x 12 mm stent with a reduction of stenosis to 0% residual. The rest of the coronary vessels have diffuse moderate disease. Normal global left ventricular systolic function with ejection fraction of 55% to 60%. Mild elevation of the left ventricular end-diastolic pressure. Exertional shortness of breath - improved Bilat leg claudication Quit Jan 2020. Prior to that 5 packs per day since her late teens Echo of 02/23/20: LVEF 55-60%, mild mitral and tricuspid regurg, PASP 50 mmHg COPD Pt reports poor memory. PCP records indicate dementia TSH 2.93 on 06/09/19 Weight gain of undetermined etiology - following with her PCP Plan: Continue current medication regimen including DAPT, statin and BB Advise f/u appt in 1-2 weeks Discussed importance of compliance with all medications including Plavix. She verbalizes understanding and states she will comply JENNIFER ARMANDO MD FACP [facility] May 19, 2020 17:15
== END 2020-05-19 14:30 | disposition home or self-care (01) ==
LOC: CATH 08:00 → ICU 11:35 → CATH 05-19 14:30
PROVIDERS: ATTEND Internal Medicine Cardiovascular Disease
DX: I25.10 Atherosclerotic heart disease of native coronary artery without angina pectoris (principal); I10 Essential (primary) hypertension; K21.9 Gastro-esophageal reflux disease without esophagitis; K59.09 Other constipation; E03.9 Hypothyroidism, unspecified; M19.90 Unspecified osteoarthritis, unspecified site; F41.9 Anxiety disorder, unspecified; F32.9 Major depressive disorder, single episode, unspecified; Z79.82 Long term (current) use of aspirin; Z79.899 Other long term (current) drug therapy; Z88.1 Allergy status to other antibiotic agents; Z87.891 Personal history of nicotine dependence; Z90.710 Acquired absence of both cervix and uterus
CPT/HCPCS: 80048; 80053; 80061; 85027 ×2; 85610; 85730; 87081; 93005; 93458; 93571; C1725; C1769 ×2; C1874; C1887; C1894 ×2; C9600; 36415

== ENCOUNTER → 2020-10-15 | Outpatient (CLI) | payer MEDICARE, MEDICAID ==
[~2020-10-15] MED LIST changes: +ATOR40TA PO; +CLOP75TA28 PO; +ESCI-2 PO; -ESCI10TA55 PO; -HEParin (CATH LAB) 2,000 ML IV ONE; -LIDOCAINE 1% INJ 20 ML 20 ML VIAL ONE; -NS IV 1000 ML 1,000 ML IV SCH; -NS IV 1000 ML 1,000 ML ONE
--- NOTE | 2020-10-15 14:56 | Diagnostic Imaging Report ---
PROCEDURE: US Thyroid. TECHNIQUE: Multiple Real-time grayscale images were obtained of the thyroid in various projections. INDICATION: Thyroid nodule. COMPARISON: There are no prior ultrasound examinations available for comparison. FINDINGS: The CT chest exam performed on 02/16/2020 did show a 10.8 mm rounded area of low density in the left lobe of the thyroid. On this exam, there is a fairly well-circumscribed 1.6 x 0.7 x 1.5 cm hypoechoic lesion in the midportion of the left lobe. I suspect this corresponds to the finding on the prior exam. This hypoechoic lesion may contain a small amount of internal debris. This lesion appears to predominantly cystic and I do suspect that this is a TI-RADS 1 type lesion. There are a few other smaller subcentimeter hypoechoic lesions in both lobes. I suspect that these are benign as well. There is no solid mass identified. The thyroid gland itself is not enlarged with the right lobe measuring 3.7 x 1.8 x 1.6 cm and the left lobe estimated to be 4.1 x 1.8 x 1.8 cm (normal gland size 4-5 x 2 x 2 cm or less). IMPRESSION: 1. The rounded area of low density in the left lobe of the thyroid seen on the previous CT chest exam is again evident. This finding is most likely a cyst. There appear to be a few other smaller cysts in both lobes of the thyroid. 2. There is no solid mass to suggest malignancy. 3. The thyroid gland is not enlarged. Dictated by: Dictated on workstation # [id number]
== END ==
LOC: RAD 13:45
PROVIDERS: ATTEND Family Medicine
DX: E04.1 Nontoxic single thyroid nodule (principal)
CPT/HCPCS: 76536

== ENCOUNTER → 2021-09-01 | Outpatient (CLI) | payer MEDICARE, MEDICAID ==
[~2021-09-01] MED LIST changes: +ARIP20TA20 PO; -ARIP20TA9 PO; -MAGN250T2 PO; +MAGN250T31 PO; +POTA-179 PO; -POTA20TA15 PO; +RT-ALBUTEROL SULF 2.5 MG/3 ML PRE-MIX VIAL INH ONE
--- NOTE | 2021-09-01 14:36 | Diagnostic Imaging Report ---
EXAMINATION: CT Lung Screening. INDICATION: Current smoker for low-dose CT screening. TECHNIQUE: Noncontrast, low-dose CT imaging performed according to the lung cancer screening protocol. Auto Exposure Controls were utilized during the CT exam to meet ALARA standards for radiation dose reduction. COMPARISON: 02/16/2020. FINDINGS: Centrilobular emphysema with some mild areas of subpleural scarring and scattered calcified benign granulomatous disease are chronic. IMPRESSION: Lung-RADS category 2. Stable benign findings as described with chronic centrilobular emphysema and benign granulomatous disease. LUNG-RADS CATEGORY: 2. MODIFIER: None. OTHER SIGNIFICANT FINDINGS: Mild right apical pleural-parenchymal scarring, chronic. No new, noncalcified, or suspicious pulmonary nodule. No endobronchial filling defect. No axillary, hilar, or mediastinal lymphadenopathy. There is coronary artery atherosclerosis. There is no pleural effusion. There is a tiny pericardial effusion, nearly resolved. The aorta is nonaneurysmal, and the visualized upper abdomen is unremarkable. Dictated by: Dictated on workstation # [id number]
== END ==
LOC: RAD 12:15
PROVIDERS: ATTEND Family Medicine
DX: J43.2 Centrilobular emphysema (principal); D71 Functional disorders of polymorphonuclear neutrophils; F17.210 Nicotine dependence, cigarettes, uncomplicated
CPT/HCPCS: 71271; 94060; 94726; 94729

== ENCOUNTER → 2021-09-06 | Outpatient (CLI) | payer MEDICARE, MEDICAID ==
[~2021-09-06] MED LIST changes: -RT-ALBUTEROL SULF 2.5 MG/3 ML PRE-MIX VIAL INH ONE
--- NOTE | 2021-09-06 09:37 | Diagnostic Imaging Report ---
PROCEDURE: US Hepatic (Liver). TECHNIQUE: Multiple Real-time grayscale images were obtained over the right upper quadrant in various projections. INDICATION: Elevated liver enzymes. FINDINGS: The liver is normal in size at approximately 16 cm. The portal vein is patent and shows normal direction of flow. No liver mass is detected. The gallbladder is without stones or sludge. No wall thickening or biliary ductal dilatation is seen. The visualized pancreas is unremarkable. The aorta is nonaneurysmal. The IVC is patent. The right kidney is without calculus or hydronephrosis. There is no ascites. IMPRESSION: Unremarkable right upper quadrant ultrasound. Dictated by: Dictated on workstation # [id number]
== END ==
LOC: RAD 08:30
PROVIDERS: ATTEND Family Medicine
DX: R94.5 Abnormal results of liver function studies (principal)
CPT/HCPCS: 76705

== ENCOUNTER → 2021-09-12 | Outpatient (CLI) | payer MEDICARE, MEDICAID ==
[~2021-09-12] VITALS: Ht 154.9 cm; Wt 75.3 kg
[~2021-09-12] MED LIST changes: +ATOR40TA70 PO; +BUDE10.2 IH; +CETI10TA17 PO; +LOSA50TA63 PO
== END | disposition home or self-care (01) ==
LOC: PREOP 05:34
PROVIDERS: ATTEND Surgery
DX: Z01.818 Encounter for other preprocedural examination (principal)

== ENCOUNTER 2021-09-14 10:02 | Day surgery (SDC) | payer MEDICARE, MEDICAID ==
[~2021-09-14] VITALS: Ht 73 cm; Wt 75.3 kg
[2021-09-14] MEDS ORDERED: LACTATED RINGERS 1,000 ML IV ONE (10:15)
[2021-09-14] MEDS ORDERED: LACTATED RINGERS 1,000 ML IV STA (10:17)
[2021-09-14] MEDS ORDERED: LIDOCAINE JELLY 2% 6 ML SYRINGE MM PRN (10:30)
[2021-09-14 10:35] VITALS: BP 155/74
[2021-09-14] MEDS ORDERED: ONDANSETRON 4 MG/2 ML (SDV) Z0FRAN IVP PRN (11:00)
[2021-09-14] MEDS ORDERED: ONDANSETRON 4 MG (ZOFRAN) ORAL DISSOLVE TAB PO PRN (11:00)
--- NOTE | 2021-09-14 11:00 | Progress Note-Pre Operative ---
Pre-Operative Progress Note H&P Reviewed The H&P was reviewed, patient examined and no changes noted. Date Seen by Provider: Sep 14, 2021 Time Seen by Provider: 10:50 Date H&P Reviewed: Sep 14, 2021 Time H&P Reviewed: 10:50 Pre-Operative Diagnosis: screening, hx polyp, FH FAINA BRITTON MD Sep 14, 2021 11:00
--- NOTE | 2021-09-14 11:01 | Discharge Inst-Surgical ---
D/C Lap Instructions-TOBI Follow Up Activity as tolerated High Fiber Diet 25g or more per day Avoid Alcohol, Caffeine, Spicy [place] and Acid foods. Drink 64 fluid oz or more of fluids per day. Symptoms to Report: Fever over 101 degree F, Nausea/Vomiting If any problems/questions: Contact your physician or go to Emergency Room FAINA BRITTON MD Sep 14, 2021 11:01
[2021-09-14] MEDS ORDERED: MIDAZOLAM 2 MG/2 ML (VERSED) VIAL ONE (12:37)
[2021-09-14] MEDS ORDERED: PROPOFOL INJECTION 50 ML IV ONE (12:37)
[2021-09-14 13:20] VITALS: BP 98/49
[2021-09-14 13:25] VITALS: BP 120/55
--- NOTE | 2021-09-14 13:26 | Progress Note-Post Operative ---
Post-Operative Progess Note Surgeon (s)/Oracle Drm Consultant (s) Surgeon FAINA BRITTON MD [employer] Drm Consultant: none Pre-Operative Diagnosis screening, hx polyp, FH Post-Operative Diagnosis mild chronic stage 2 ext and int hemorrhoids, small HP rectum, moderate sigmoid diverticulosis. Procedure & Operative Findings Date of Procedure 09/14/21 Procedure Performed/Findings colonoscopy with bx. Anesthesia Type mac Estimated Blood Loss Estimated blood loss (mL): minimal Specimens/Packing Specimens Removed rectal polyp FAINA BRITTON MD Sep 14, 2021 13:26
[2021-09-14 13:30] VITALS: BP 129/59
[2021-09-14 14:00] VITALS: BP 162/66
--- NOTE | 2021-09-14 19:47 | OPERATIVE REPORT ---
DATE OF SERVICE: 09/14/2021 ATTENDING PRIMARY CARE PHYSICIAN: Mora Marcos DO PREOPERATIVE DIAGNOSIS: Screening colonoscopy with a family history of colon cancer. POSTOPERATIVE DIAGNOSIS: mild chronic stage 2 external and internal hemorrhoids, small hyperplastic polyp rectum PROCEDURE: Colonoscopy with polypectomy with forceps and cautery. SURGEON: Faina Britton MD ANESTHESIA: Monitored anesthesia care. ESTIMATED BLOOD LOSS: Minimal. FINDINGS: Same as postoperative diagnoses. DISPOSITION: The patient tolerated the procedure well. INDICATIONS: The patient is a 71-year-old female referred over to us for screening colonoscopy. His last colonoscopy was in 2017 where she was found to have several polyps, which both encompassed hyperplastic polyps as well as a tubular adenoma. She also does have a first-degree family history of colon cancer with her mother having the disease. She does not report any major issues with diarrhea nor constipation as well as no red blood per rectum nor any dark tarry stools. DESCRIPTION OF PROCEDURE: The patient was brought to the endoscopy suite, laid in the left lateral decubitus position. After adequate IV pain and sedative medications and monitored anesthesia care, a digital rectal examination was performed. Chronic stage II external and internal hemorrhoids were identified, which were not actively edematous nor inflamed with no bleeding. Normal sphincter tone was felt and there were no palpable masses. The endoscope was then intubated into the anus and rectum gently insufflated. The endoscope was then advanced through the valves of Gerard of the rectum with a small hyperplastic polyp identified. This was biopsied and destroyed with forceps and electrocautery with visualization of good hemostasis. The endoscope was then advanced through the sigmoid colon where a moderate sigmoid diverticulosis identified. The endoscope was then advanced to the remainder of the descending, transverse and ascending colon to the cecum, which were normal. There were no other lesions identified. The endoscope was then slowly withdrawn while taking a second look and suctioning of residual air with no additional findings. The patient tolerated the procedure well. We will recommend a high fiber diet with incorporation of a fiber supplement, which should equal or exceed 25 grams daily to promote soft stools on a daily basis. If she is asymptomatic, she does not need another colonoscopy for another 5 years. Job ID: [id number] DocumentID: [id number] Dictated Date: 09/14/2021 13:20:56 Steel Grinder Date: 09/14/2021 19:46:39 Dictated By: FAINA BRITTON MD [facility]
== END 2021-09-14 14:10 | disposition home or self-care (01) ==
LOC: ENDO 10:02
PROVIDERS: ATTEND Surgery
DX: Z12.11 Encounter for screening for malignant neoplasm of colon (principal); K62.1 Rectal polyp; K57.30 Diverticulosis of large intestine without perforation or abscess without bleeding; K64.1 Second degree hemorrhoids; K64.4 Residual hemorrhoidal skin tags; F17.210 Nicotine dependence, cigarettes, uncomplicated; Z80.0 Family history of malignant neoplasm of digestive organs

== ENCOUNTER → 2021-10-21 | Outpatient (CLI) | payer MEDICARE, MEDICAID ==
[~2021-10-21] VITALS: Ht 154 cm; Wt 76.0 kg
[~2021-10-21] MED LIST changes: +REGADENOSON 0.4 MG/5 ML SYR (LEXISCAN) IV ONE
[2021-10-21] MEDS: CATHETER FLUSH 10 ML SYR IVP PRN ×2 (07:18→09:13)
[2021-10-21 09:12] VITALS: BP 221/83
--- NOTE | 2021-10-24 12:17 | STRESS TEST ---
DATE OF SERVICE: 10/21/2021 RESTING AND POST REGADENOSON TECHNETIUM-99M TETROFOSMIN SPECT CT IMAGING ORDERING PHYSICIAN: Dr. Vazquez. PRIMARY PHYSICIAN: Dr. Marcos. CLINICAL DIAGNOSES: Coronary artery disease. Baseline images were carried out after injection of 10.6 mCi of technetium-99m Tetrofosmin. This was followed by 0.4 mg of regadenoson and 28.9 mCi of technetium-99m Tetrofosmin for stress imaging. The electrocardiogram showed sinus rhythm with right bundle branch block at baseline. It did not change significantly with the regadenoson infusion. The patient tolerated the procedure well. Review of images at rest and following stress does not indicate any significant perfusion defects consistent with significant myocardial ischemia or infarction. Gated images show normal global left ventricular systolic function with normal regional wall motion. Left ventricular ejection fraction is calculated to be 73%. CONCLUSIONS: 1. No evidence of significant myocardial ischemia or infarction on this study. 2. Normal regional wall motion. 3. Normal global left ventricular systolic function with a calculated ejection fraction of 73%. Job ID: [id number] DocumentID: [id number] Dictated Date: 10/24/2021 09:21:24 Coach Date: 10/24/2021 12:16:02 Dictated By: JENNIFER VAZQUEZ MD, MA, FACP, FACC,
== END ==
LOC: CARD 07:30
PROVIDERS: ATTEND Internal Medicine Cardiovascular Disease
DX: I25.10 Atherosclerotic heart disease of native coronary artery without angina pectoris (principal)
CPT/HCPCS: 78452; 93017; A9502

== ENCOUNTER → 2022-01-20 | Outpatient (CLI) | payer MEDICARE, MEDICAID ==
[~2022-01-20] MED LIST changes: -REGADENOSON 0.4 MG/5 ML SYR (LEXISCAN) IV ONE
--- NOTE | 2022-01-20 11:46 | Diagnostic Imaging Report ---
Indication: Right wrist pain and swelling AP, oblique, lateral views the right wrist are obtained No fracture or acute bony abnormality seen. There is advanced degenerative change of 1st carpal metacarpal joint and triscaphe joint. IMPRESSION: Degenerative findings of the right wrist as above with no acute abnormality. Dictated by: Dictated on workstation # [id number]
== END ==
LOC: RAD 10:17
PROVIDERS: ATTEND Family Medicine
DX: M19.031 Primary osteoarthritis, right wrist (principal)
CPT/HCPCS: 73110

== ENCOUNTER → 2022-09-06 | Outpatient (CLI) | payer MEDICARE, MEDICAID ==
[~2022-09-06] MED LIST changes: -POTA10CA43 PO; +POTA10CA44 PO
== END ==
LOC: CARD 11:40
PROVIDERS: ATTEND Nurse Practitioner Family
DX: R06.09 Other forms of dyspnea (principal)
CPT/HCPCS: 93306

== ENCOUNTER → 2023-04-30 | Outpatient (CLI) | payer MEDICARE, MEDICAID ==
[~2023-04-30] MED LIST changes: -POTA10CA44 PO; +POTA10CA84 PO
--- NOTE | 2023-05-01 09:27 | Diagnostic Imaging Report ---
CT CHEST SCREENING WO TECHNIQUE: Low-dose unenhanced CT of the chest was performed according to the screening protocol. Coronal MIP and sagittal MPR reformats are created. Automatic exposure controls were utilized to keep dose as low as reasonably achievable. INDICATION: 135 pack year history smoking. Current smoker. COMPARISON: 09/01/2021 FINDINGS: Pulmonary findings: No abnormality trachea. Severe centrilobular emphysema is again noted. Unchanged calcified left upper lobe granulomas. No suspicious pulmonary nodules have developed. There is no pneumonia or edema. Extrapulmonary findings: No axillary or mediastinal lymphadenopathy. Unchanged cardiomegaly with moderate coronary calcifications. Small pericardial effusion has mildly increased in size with a maximal thickness of 7 mm. Calcific patient throughout the thoracic aorta are unchanged. Limited assessment upper abdomen is unremarkable. No worrisome focal osseous lesions. IMPRESSION: 1. No change in clinically active lung cancer. 2. Small pericardial effusion has mildly increased in size since last years exam. Lung-RADS category: 1 - Negative Recommendations: Continued annual screening with low-dose CT in 12 months. Dictated by: Dictated on workstation # [id number]
== END ==
LOC: RAD 15:52
PROVIDERS: ATTEND Nurse Practitioner Gerontology
DX: Z12.2 Encounter for screening for malignant neoplasm of respiratory organs (principal); I31.39 Other pericardial effusion (noninflammatory)
CPT/HCPCS: 71271